=== PATIENT | female | born 1990 | race Caucasian/White ===

== ENCOUNTER → 2019-01-30 10:37 | Outpatient (CLI) | payer MEDICAID, SELFPAY | PROVIDERS: PCP Nurse Practitioner Family; Visit Provider Nurse Practitioner Family | DX: R10.9 Unspecified abdominal pain (principal) ==

== ENCOUNTER → 2019-01-31 09:15 | Outpatient (CLI) | payer MEDICAID, SELFPAY ==
--- NOTE | 2019-01-31 09:16 | US_ITS ---
PROCEDURE: US GALLBLADDER CLINICAL INDICATION: pain Postprandial pain COMPARISON: No exams were available for comparison FINDINGS: Pancreas: Unremarkable/Not well seen Liver: Unremarkable. There is appropriate direction of blood flow within a non dilated portal vein. Right kidney: Unremarkable appearing. No hydronephrosis. Gallbladder: The gallbladder is contracted with multiple stones. No pericholecystic fluid or biliary dilatation is evident. No gallbladder wall thickening. IMPRESSION: Contracted gallbladder with multiple stones Dictated by: Edy Jessica MD 02/01/2019 11:59 Electronically signed by Edy Jessica MD in [place] 02/02/2019 16:08
== END ==
PROVIDERS: PCP Nurse Practitioner Family; Visit Provider Nurse Practitioner Family
DX: R10.9 Unspecified abdominal pain (principal)
CPT/HCPCS: 76705

== ENCOUNTER → 2019-03-07 16:54 | Outpatient (CLI) | payer MEDICAID, SELFPAY ==
[2019-03-07 17:27] LABS: Basophils % 0.3 % (0.1-2.0); Eosinophils # 0.1 K/mm3 (0.0-0.4); Eosinophils % 1.3 % (0.1-12.0); Hemoglobin 13.3 g/dL (12.2-16.2); Lymphocytes # 3.1 K/mm3 (0.7-4.5); Lymphocytes % 37.1 % (10-50); Mean Corpuscular HGB Conc 33.2 g/dL (31.8-35.4); Mean Corpuscular Hemoglobin 30.1 pg (27.0-31.2); Mean Corpuscular Volume 90.6 fl (81-99); Mean Platelet Volume 9.4 fl (7.4-10.4); Monocytes # 0.3 K/mm3 (0.1-1.0); Neutrophils # 4.8 K/mm3 (1.8-7.8); Neutrophils % 57.3 % (37.0-80.0); Platelet Count 209 K/mm3 (142-424); Red Blood Count 4.42 M/mm3 (4.20-5.40); Red Cell Distribution Width 13.3 % (11.5-17.5); White Blood Count 8.5 K/mm3 (4.8-10.8)
[2019-03-07 19:09] LABS: Alanine Aminotransferase 31 U/L (12-78); Albumin Level 4.2 gm/dL (3.4-5.0); Albumin/Globulin Ratio 1.3 (1.1-1.8); Alkaline Phosphatase 69 U/L (46-116); Anion Gap 14.1 mEq/L (5-15); Aspartate Amino Transferase 18 U/L (15-37); Bilirubin,Total 0.4 mg/dL (0.2-1.0); Blood Urea Nitrogen 11 mg/dL (7-18); Carbon Dioxide 27 mmol/L (21.0-32.0); Chloride 104 mmol/L (98-107); Creatinine,Serum 0.67 mg/dL (0.55-1.02); Estimated Glomerular Filt Rate 106 ml/min (>60); GFR (African American) 128 ML/MIN (>60); Globulin 3.2 gm/dl (1.3-3.2); Glucose 69 mg/dL (74-106); Potassium 4.1 mmoL/L (3.5-5.1); Sodium 141 mmol/L (136-145); Total Protein,Serum 7.4 gm/dL (6.4-8.2)
[2019-03-07 19:54] LABS: HCG Qualitative, Serum Negative (Negative)
== END ==
PROVIDERS: Visit Provider Surgery
DX: K82.9 Disease of gallbladder, unspecified (principal)
CPT/HCPCS: 36415; 80053; 84703; 85025

== ENCOUNTER 2020-11-25 01:00 | Emergency (ER) | payer MEDICAID, SELFPAY ==
[2020-11-25 01:13] VITALS: BP 134/71; PULSE 70; RESP 18; TEMP 37.4; O2SAT 99; BMI 29.0
[2020-11-25 01:36] LABS: Microscopic, Urine URINE MICROSCOPIC (MICROSCOPIC)
--- NOTE | 2020-11-25 01:40 | HMH.EDUROGF ---
ED Disposition Clinical Impression: Vaginitis Qualifiers: Chronicity: acute Qualified Code(s): N76.0 - Acute vaginitis Disposition: Home, Self-Care Condition on Discharge: Good Instructions: DI for Bacterial Vaginosis Additional Instructions: use meds and see pcp for follow up or manager gyn and call for culture results Prescriptions: Fluconazole [Diflucan 150mg tab] 150 mg PO ONCE #5 tab Transmission Status: Pending to [facility] Referrals: Wily Rose APRN [Primary Care Provider] - - Critical Care Critical Care Time: No Attestation: On 11/25/20, the high probability of a clinically significant, sudden or life threatening deterioration of the following system(s) required my full and direct attention, intervention and personal management. The time I documented below is in addition to time spent performing reported procedures but includes the following listed in this critical care notation. Medical Decision Making - Medical Records Medical records reviewed: Yes: I reviewed the patient's medical records. - David Inquiry Pt receiving controlled substance: No Vital Signs: 11/25/20 01:13 Temperature 99.3 F Temperature Source Oral Pulse Rate [Right] 70 Respiratory Rate 18 Blood Pressure [Right Arm] 134/71 Blood Pressure Mean [Right Arm] 92 Blood Pressure Source [Right Arm] Automatic Cuff Blood Pressure Position [Right Arm] Sitting 02 Sat by Pulse Oximetry 99 Oxygen Delivery Method Room Air - Lab Data Lab results reviewed: Yes: I reviewed the patient's lab results. Lab Results 11/25/20 01:26: Urine Color Yellow, Urine Appearance Clear, Urine pH 7.0, Ur Specific [place] 1.010, Urine Protein Negative, Urine Glucose (UA) Negative, Urine Ketones Negative, Urine Blood Negative, Urine Nitrate Negative, Urine Bilirubin Negative, Urine Urobilinogen 0.2, Ur Leukocyte Esterase 2+ A, Urine WBC 5-10, Ur Squamous Epith Cells 10-20, Ur Renal Epithelial Cell 5-10 11/25/20 01:36: Urine HCG, Qual Negative Orders (Tests/Meds): ORDERS Category Date Time Status Urine Culture Stat Micro 11/25/20 01:26 Received Female Urogenital HPI - General Chief complaint: Urogenital-Female Stated complaint: Vaginal discharge,irritation and burning Time Seen by Provider: 11/25/20 01:35 Mode of Arrival: Ambulatory Source of Information: Patient, Medical Record Limitations: No Limitations Description of Symptoms (Recalled from ER Triage Doc. by RN): Pt states she has a recent new partner and she has vaginal bleeding yesterday and now has brown to green vaginal discharge and burning with urination. - History of Present Illness HPI Narrative: has vaginal d/c with no odor and is sex active MD Complaint: vaginal discharge Onset (ago): day(s) Radiation: suprapubic Severity: moderate Urinary Symptoms: dysuria Sexual activity: new sexual partner(s) : Unknown Associated symptoms: vaginal discharge - Related Data Home Medications Medication Instructions Recorded Confirmed Nicotine [Nicotine Patch] 1 patch TRANSDERMAL Q24H 03/09/19 08/11/19 Previous Rx's Medication Instructions Recorded fluticasone propionate 50 1 spray INTRANASAL QDAY #9.9 ml 07/07/19 mcg/actuation nasal spray,suspension cephalexin 500 mg capsule 500 mg PO Q12H 10 Days #20 cap 08/11/19 Fluconazole [Diflucan 150mg tab] 150 mg PO ONCE #5 tab 11/25/20 Allergies Allergy/AdvReac Type Severity Reaction Status Date / Time No Known Allergies Allergy Verified 08/11/19 11:11 [facility] History - Hepatitis A Screen Drug use history?: No High risk sexual behaviors?: No History of sexually transmitted infection?: No Currently employed?: No Childcare worker?: No Do you have indoor plumbing?: Yes Do you have electricity?: Yes Attestation statement:: This patient has been screened for Hepatitis A risk factors. I have reviewed the patient's past medical history: Yes Medical History: Reports:: Anxiety, Migraine Denie
[2020-11-25 01:47] LABS: Appearance,Urine CLEAR (Clear); Bilirubin,Urine Negative (Negative); Blood, Urine Negative (Negative); Color,Urine YELLOW (Yellow); Glucose,Urine (UA) Negative (Negative); Ketones,Urine Negative (Negative); Leukocyte Esterase,Urine 2+ (Negative); Nitrate,Urine Negative (Negative); Protein,Urine Negative (Negative); Urobilinogen,Urine 0.2 EU/dl (0.2)
[2020-11-25 01:51] LABS: Urine Pregnancy, HCG Qual. Negative (Negative)
[2020-11-25 02:14] VITALS: BP 138/72; PULSE 74; RESP 18; TEMP 37.4; O2SAT 98
[2020-11-27 01:10] LABS: Neisseria gonorrhoeae, NAA Negative (Negative)
== END 2020-11-25 02:16 | disposition home or self-care (01) ==
PROVIDERS: Emergency Provider Emergency Medicine; PCP Nurse Practitioner Family
DX: N76.0 Acute vaginitis (principal); F41.9 Anxiety disorder, unspecified; F17.210 Nicotine dependence, cigarettes, uncomplicated
CPT/HCPCS: 81001; 81025; 87086; 87210; 87491; 87591; 99282

== ENCOUNTER 2021-11-21 16:59 | Emergency (ER) | payer MEDICAID, SELFPAY ==
[2021-11-21 17:17] VITALS: BP 121/86; PULSE 88; RESP 18; TEMP 36.9; O2SAT 98; BMI 28.1
[2021-11-21 17:21] LABS: UTC Strep Screen (Rapid) Negative (Negative)
--- NOTE | 2021-11-21 17:21 | HMH.EDUTC ---
[facility] [place] Clinical Impression: Pharyngitis Qualifiers: Pharyngitis/tonsillitis etiology: other specified organisms Qualified Code(s): J02.8 - Acute pharyngitis due to other specified organisms Otitis media Qualifiers: Otitis media type: suppurative Chronicity: acute Laterality: bilateral Recurrence: non-recurrent Spontaneous tympanic membrane rupture: without spontaneous rupture Qualified Code(s): H66.003 - Acute suppurative otitis media without spontaneous rupture of ear drum, bilateral Disposition: Home, Self-Care Condition on Discharge: Good Instructions: Middle Ear Infection, DI for Strep Throat Additional Instructions: Drink plenty of fluids. Take tylenol or ibuprofen for pain or fever. Take the medications as directed. Follow up with your regular doctor. GO TO THE ER FOR ANY WORSENING SYMPTOMS Prescriptions: methylPREDNISolone [Medrol] 4 mg PO DIRECTED 6 Days #21 packet Transmission Status: Sent to [facility] Azithromycin [Z-Garry 250mg Tab*] 250 mg PO UD DOSE PK #6 tab Transmission Status: Sent to [facility] Referrals: Aylin Richardson PA [Primary Care Provider] - Forms: Work/School Release Time of Disposition: 17:41 Medical Decision Making - Medical Records Medical records reviewed: No: I reviewed the patient's medical records. - David Inquiry Pt receiving controlled substance: No Vital Signs: 11/21/21 17:17 Temperature 98.4 F Temperature Source Oral Pulse Rate [Left Radial] 88 Respiratory Rate 18 Blood Pressure [Right Arm] 121/86 Blood Pressure Mean [Right Arm] 97 02 Sat by Pulse Oximetry 98 Oxygen Delivery Method Room Air - Lab Data Lab Results 11/21/21 17:02: Strep Scn Rapid Clinic Negative Orders (Tests/Meds): ORDERS Category Date Time Status Strep Screen Confirmation Stat Micro 11/21/21 17:02 Received [facility] [place] - General Stated complaint: sore throat Time Seen by Provider: 11/21/21 17:21 Mode of Arrival: Ambulatory Source of Information: Patient Limitations: No Limitations Description of Symptoms (Recalled from Triage Doc. by RN): pt to [facility] c/o sore throat that started this morning HEENT Symptoms (Recalled from RN notes): Yes Resp Symptoms (Recalled from RN notes): No Skin Symptoms (Recalled from RN notes): No MS Symptoms (Recalled from RN notes): No Functional Status (Recalled from RN notes): na - History of Present Illness Provider Complaint: She c/o sore throat and left ear pain for the past 1 day. - Related Data Home Medications Medication Instructions Recorded Confirmed Nicotine [Nicotine Patch] 1 patch TRANSDERMAL Q24H 03/09/19 08/11/19 Previous Rx's Medication Instructions Recorded fluticasone propionate 50 1 spray INTRANASAL QDAY #9.9 ml 07/07/19 mcg/actuation nasal spray,suspension cephalexin 500 mg capsule 500 mg PO Q12H 10 Days #20 cap 08/11/19 Fluconazole [Diflucan 150mg tab] 150 mg PO ONCE #5 tab 11/25/20 metronidazole 500 mg tablet 500 mg PO TID 10 Days #30 tab 11/26/20 Azithromycin [Z-Garry 250mg Tab*] 250 mg PO UD DOSE PK #6 tab 11/21/21 methylPREDNISolone [Medrol] 4 mg PO DIRECTED 6 Days #21 11/21/21 packet Allergies Allergy/AdvReac Type Severity Reaction Status Date / Time No Known Allergies Allergy Verified 08/11/19 11:11 - Worker's Comp Is this a Worker's Comp case?: No [facility] History - Hepatitis A Screen Attestation statement:: This patient has been screened for Hepatitis A risk factors. I have reviewed the patient's past medical history: Yes Medical History: Reports:: Anxiety, Migraine Denies:: Cancer, Diabetes Mellitus Type 1, Diabetes Mellitus Type 2, Internal Pacemaker, MRSA, Seizures, Transient Ischemic Attacks (TIA) Other Medical History: Denies: Blood Transfusion Reaction Other Surgeries: Yes: No Previous Surgery, Cholecystectomy, Tubal Ligation. No: Pacemaker Amputation: No Fractures: No - Social History Smoking Status: Current pablito
[2021-11-21 17:46] VITALS: BP 119/80; PULSE 87; RESP 18; TEMP 36.9; O2SAT 98
== END 2021-11-21 17:48 | disposition home or self-care (01) ==
PROVIDERS: Emergency Provider Nurse Practitioner Family; PCP Physician Assistant
DX: J02.8 Acute pharyngitis due to other specified organisms (principal); H66.003 Acute suppurative otitis media without spontaneous rupture of ear drum, bilateral; Z72.0 Tobacco use
CPT/HCPCS: 87880; 99212; C9803; G0463; U0003; U0005

== ENCOUNTER 2021-11-25 11:58 | Emergency (ER) | payer MEDICAID, SELFPAY ==
[2021-11-25 11:58] VITALS: BP 127/70; PULSE 69; RESP 15; TEMP 36.9; O2SAT 98; BMI 29.0
--- NOTE | 2021-11-25 12:01 | ECG_ITS ---
APPROVED REPORT Exam: Resting ECG HR:67 bpm ECG Measurements Heart Rate 67 AXES AZ 169 P 51 QRSd 83 QRS 57 QT 371 T 5 QTc 386 Conclusion SINUS RHYTHM NONSPECIFIC T-WAVE ABNORMALITY BORDERLINE ECG UNCONFIRMED REPORT Electronically signed by : Boris Soto MD 11/25/2021 21:21:09
[2021-11-25 12:22] LABS: Coronavirus 19, PCR Not Detected (NotDetected); Influenza A, PCR Not Detected (NotDetected); Influenza B, PCR Not Detected (NotDetected)
--- NOTE | 2021-11-25 12:31 | HMH.EDGENADL ---
ED Disposition Clinical Impression: Bronchitis Disposition: Home, Self-Care Condition on Discharge: Good Prescriptions: predniSONE [Prednisone 20mg Tab] 20 mg PO DAILY #5 tab Transmission Status: Pending to [facility] Azithromycin [Zithromax 500mg Tab Tri-Garry] 500 mg PO DAILY #3 tab Transmission Status: Pending to [facility] Referrals: Provider,Referral, MD [Primary Care Provider] - - Critical Care Critical Care Time: No Attestation: On 11/25/21, the high probability of a clinically significant, sudden or life threatening deterioration of the following system(s) required my full and direct attention, intervention and personal management. The time I documented below is in addition to time spent performing reported procedures but includes the following listed in this critical care notation. Medical Decision Making - Medical Records Medical records reviewed: Yes: I reviewed the patient's medical records. - David Inquiry Pt receiving controlled substance: No Vital Signs: 11/25/21 11:58 Temperature 98.5 F Temperature Source Oral Pulse Rate [Right Radial] 69 Respiratory Rate 15 Blood Pressure [Right Arm] 127/70 Blood Pressure Mean [Right Arm] 89 Blood Pressure Source [Right Arm] Automatic Cuff Blood Pressure Position [Right Arm] Sitting 02 Sat by Pulse Oximetry 98 Oxygen Delivery Method Room Air - Lab Data Lab Results 11/25/21 12:00: Group A Strep Rapid Negative 11/25/21 12:00: SARS-CoV-2 (PCR) Not detected, Influenza A Untype (PCR) Not detected, Influenza Type B (PCR) Not detected Orders (Tests/Meds): ORDERS Category Date Time Status Strep Screen Confirmation Stat Micro 11/25/21 12:00 Received 12-lead EKG Request [ECG Request by /Nevaeh] NEEDED Y 11/25/21 12:15 Stop Req 12-lead EKG Request [ECG Request by /Nevaeh] Stat Y 11/25/21 12:01 Ordered General Adult HPI - General Chief complaint: Upper Respiratory Infection Stated complaint: CP Time Seen by Provider: 11/25/21 12:36 Mode of Arrival: Ambulatory Limitations: No Limitations Description of Symptoms (Recalled from ER Triage Doc. by RN): Pt c/o CP with inspiration, wheezing, SOA, dry cough, sore throat - History of Present Illness HPI narrative: Patient presents with a 1 day history of coughing, sore throat and intermittent wheezing and shortness of air. She states her children had similar symptoms last week, positive for strep. She denies chest pain at this time. Symptoms are described as mild to moderate and without exacerbating or alleviating factors. - Related Data Home Medications Medication Instructions Recorded Confirmed Nicotine [Nicotine Patch] 1 patch TRANSDERMAL Q24H 03/09/19 08/11/19 Previous Rx's Medication Instructions Recorded fluticasone propionate 50 1 spray INTRANASAL QDAY #9.9 ml 07/07/19 mcg/actuation nasal spray,suspension cephalexin 500 mg capsule 500 mg PO Q12H 10 Days #20 cap 08/11/19 Fluconazole [Diflucan 150mg tab] 150 mg PO ONCE #5 tab 11/25/20 metronidazole 500 mg tablet 500 mg PO TID 10 Days #30 tab 11/26/20 Azithromycin [Z-Garry 250mg Tab*] 250 mg PO UD DOSE PK #6 tab 11/21/21 methylPREDNISolone [Medrol] 4 mg PO DIRECTED 6 Days #21 11/21/21 packet Azithromycin [Zithromax 500mg Tab 500 mg PO DAILY #3 tab 11/25/21 Tri-Garry] predniSONE [Prednisone 20mg 20 mg PO DAILY #5 tab 11/25/21 Tab] Allergies Allergy/AdvReac Type Severity Reaction Status Date / Time No Known Allergies Allergy Verified 08/11/19 11:11 [facility] History - Hepatitis A Screen Drug use history?: No Attestation statement:: This patient has been screened for Hepatitis A risk factors. Medical History: Reports:: Anxiety, Migraine Denies:: Cancer, Diabetes Mellitus Type 1, Diabetes Mellitus Type 2, Internal Pacemaker, MRSA, Seizures, Transient Ischemic Attacks (TIA) Other Medical History: Denies: Blood Transfusion Reaction Other Surgeries: Yes: No Previous Surgery,
[2021-11-25 12:37] LABS: Strep Scrn Group A (Rapid) Negative (Negative)
[2021-11-25 13:31] VITALS: BP 132/74; PULSE 63; O2SAT 99
[2021-11-25 14:00] VITALS: BP 118/79; PULSE 66; O2SAT 98
[2021-11-25 14:02] VITALS: BP 129/74; PULSE 67; RESP 16; TEMP 36.9; O2SAT 99
[2021-11-25 14:07] VITALS: BP 118/79; PULSE 63; RESP 16; TEMP 36.9; O2SAT 99
== END 2021-11-25 14:08 | disposition home or self-care (01) ==
PROVIDERS: Emergency Provider Emergency Medicine
DX: J40 Bronchitis, not specified as acute or chronic (principal); Z72.0 Tobacco use; F41.9 Anxiety disorder, unspecified; G43.909 Migraine, unspecified, not intractable, without status migrainosus
CPT/HCPCS: 87430; 93005; 99283; C9803; U0003; U0005

== ENCOUNTER 2021-12-23 16:52 | Emergency (ER) | payer MEDICAID, SELFPAY ==
[2021-12-23 16:53] VITALS: BP 151/81; PULSE 65; RESP 18; TEMP 36.9; O2SAT 97; BMI 29.7
[2021-12-23 17:17] LABS: Apearance,Urine Clear (Clear); Color,Urine Yellow (Yellow); Glucose,Urine (UA) Negative (Negative); PH,Urine 6.5 (5.0-8.5); Protein,Urine Negative (Negative)
[2021-12-23 17:18] LABS: Bilirubin,Urine Negative (Negative); Blood, Urine Trace (Negative); Ketones,Urine Negative (Negative); UTC Leukocyte Esterase,Urine 1+ (Negative); UTC Nitrate,Urine Positive (Negative); Urobilinogen,Urine 0.2 EU/dl (0.2)
--- NOTE | 2021-12-23 17:22 | EXP.UTC ---
Discharge Plan Disposition Patient Disposition: Home, Self-Care Condition: Good Prescriptions Prescriptions: New phenazopyridine [Pyridium] 200 mg tablet 200 mg PO Q8H Qty: 6 0RF sulfamethoxazole-trimethoprim [Bactrim DS] 800-160 mg Tablet 1 tab PO BID Qty: 14 0RF ondansetron 4 mg Tablet,Disintegrating 4 mg PO Q8H PRN (Reason: Nausea) Qty: 20 0RF No Action fluticasone propionate [Flonase Allergy Relief] 50 mcg/actuation spray,suspension 1 spray INTRANASAL QDAY Qty: 9.9 0RF Rx Instructions: administer into each nostril cephalexin [Keflex] 500 mg capsule 500 mg PO Q12H 10 Days Qty: 20 0RF metronidazole [Flagyl] 500 mg tablet 500 mg PO TID 10 Days Qty: 30 0RF Rx Instructions: Do not consume Alcohol while taking this medication. nicotine 1 EACH patch, TD daily, sequential 1 patch transdermal Q24H azithromycin 500 MG tablet 500 mg PO DAILY Qty: 3 0RF prednisone 20 MG tablet 20 mg PO DAILY Qty: 5 0RF fluconazole 150 MG tablet 150 mg PO ONCE Qty: 5 0RF azithromycin 250 MG tablet 250 mg PO UD DOSE PK Qty: 6 0RF Rx Instructions: Take two (2) tablets today, then one (1) tablet days #2 thru #5 methylprednisolone 4 MG tablets,dose pack 4 mg PO DIRECTED 6 Days Qty: 21 0RF Referrals Follow up/Referrals: Aylin Richardson PA [Primary Care Provider] - See instructions Activity Restrictions/Add. Instructions Additional Instructions/Restrictions: Drink plenty of fluids. Take tylenol or ibuprofen for pain or fever. Take the medications as directed. Follow up with your regular doctor. GO TO THE ER FOR ANY WORSENING SYMPTOMS The pyridium will make your urine turn orange, this is an expected side effect. It will stain your clothes if it comes into contact with them. We will culture the urine. That will tell what bacteria is causing your infection and which antibiotics will treat it best. Sometimes the first antibiotic we prescribe turns out to not work against different bacteria. So, make sure you follow up within 3 days if you are not getting better. Clinical Impressions Clinical Impression: UTI (urinary tract infection) Instructions Patient Instructions: Urine Culture, DI for Urinary Tract Infection (UTI), Phenazopyridine Discharge ED Provider: Dwayne Leger [facility] HPI General Stated complaint: POSS UTI Mode of Arrival: Ambulatory Source of Information: Patient Limitations: No Limitations Time Seen by Provider: 12/23/21 17:22 Description of Symptoms (Recalled from Triage Doc. by RN): PT C/O UTI X 4 DAYS AND BILATERAL EAR ACHE HEENT Symptoms (Recalled from RN notes): Yes Resp Symptoms (Recalled from RN notes): No Skin Symptoms (Recalled from RN notes): No MS Symptoms (Recalled from RN notes): No Functional Status (Recalled from RN notes): NA History of Present Illness Provider Complaint: She c/o low back pain, dysuria and urinary frequency for the past 2 days. Related Data Home Medications Medication Instructions Recorded Confirmed nicotine 1 patch transdermal Q24H daily 03/09/19 08/11/19 21mg/24hr-14mg/24hr-7mg/24hr daily transderm patches,sequentl Previous Rx's Medication Instructions Recorded fluticasone propionate 50 1 spray intranasal QDAY #9.9 mL 07/07/19 mcg/actuation nasal spray,suspension (Flonase Allergy Relief) cephalexin 500 mg capsule (Keflex) 500 mg PO Q12H 10 days #20 caps 08/11/19 fluconazole 150 mg tablet 150 mg PO ONCE #5 tabs 11/25/20 metronidazole 500 mg tablet 500 mg PO TID 10 days #30 tabs 11/26/20 (Flagyl) azithromycin 250 mg tablet 250 mg PO UD DOSE PK #6 tabs 11/21/21 methylprednisolone 4 mg tablets in 4 mg PO DIRECTED 6 days #21 11/21/21 a dose pack packets azithromycin 500 mg tablet 500 mg PO DAILY #3 tabs 11/25/21 prednisone 20 mg tablet 20 mg PO DAILY #5 tabs 11/25/21 ondansetron 4 mg disintegrating 4 mg PO Q8H PRN Nausea #20 tabs 12/23/21 tablet phe
[2021-12-23 18:01] VITALS: BP 151/81; PULSE 65; RESP 18; TEMP 36.9; O2SAT 99
== END 2021-12-23 18:03 | disposition home or self-care (01) ==
PROVIDERS: Emergency Provider Nurse Practitioner Family; PCP Physician Assistant
DX: N39.0 Urinary tract infection, site not specified (principal); B96.89 Other specified bacterial agents as the cause of diseases classified elsewhere; Z16.11 Resistance to penicillins; Z16.24 Resistance to multiple antibiotics; Z16.29 Resistance to other single specified antibiotic
CPT/HCPCS: 81003; 87086; 87088; 87186; 99212; G0463

== ENCOUNTER → 2022-01-29 14:36 | Outpatient (CLI) | payer MEDICAID, SELFPAY ==
[2022-01-29 18:57] LABS: HCG Qualitative, Serum Negative (Negative)
[2022-01-31 08:15] LABS: HSV 2 IgG, Type Spec 5.84 index (0.00-0.90)
[2022-01-31 10:12] LABS: Rapid Plasma Reagin Ab Titer Non Reactive (NonRea<1:1)
[2022-02-02 16:12] LABS: Treponema pallidum Ab (FTA-ABS Non Reactive (Non Reactive)
[2022-02-02 17:27] LABS: Neisseria gonorrhoeae, NAA Negative (Negative)
[2022-02-18 13:44] LABS: Hep A Ab, IgM NEGATIVE; Hepatitis B Core Antibody IgM NEGATIVE; Hepatitis B Surface Antigen NEGATIVE; Hepatitis C Antibody <0.1
[2022-03-07 21:57] LABS: HIV Screen 4th Generation wRfx Non Reactive
== END ==
PROVIDERS: PCP Physician Assistant; Visit Provider Physician Assistant
DX: Z11.3 Encounter for screening for infections with a predominantly sexual mode of transmission (principal); A53.0 Latent syphilis, unspecified as early or late
CPT/HCPCS: 80074; 84703; 86592; 86695; 86703; 86780; 86790; 87491; 87591; G0432

== ENCOUNTER 2022-04-26 19:20 | Emergency (ER) | payer MEDICAID, SELFPAY ==
[2022-04-26 19:25] VITALS: BP 126/83; PULSE 79; RESP 18; TEMP 36.8; O2SAT 96; BMI 32.1
--- NOTE | 2022-04-26 19:40 | EXP.UTC ---
Discharge Plan Disposition Patient Disposition: Home, Self-Care Condition: Good Prescriptions Prescriptions: New penicillin V potassium 500 mg tablet 500 mg PO QID 7 Days Qty: 28 0RF ibuprofen [IBU] 800 mg tablet 800 mg PO TIDP PRN (Reason: Moderate Pain) Qty: 20 0RF No Action valacyclovir [Valtrex] 500 mg tablet 500 mg PO DAILY Qty: 90 3RF Referrals Follow up/Referrals: Aylin Richardson PA [Primary Care Provider] - See instructions Activity Restrictions/Add. Instructions Additional Instructions/Restrictions: Do not smoke Do not suck through straw Soft diet may help with pain and discomfort Make sure to call Dentist first thing in the morning to get in for further evaluation and examination for check for dry socket Return if needed Softly gargle warm salt water if your dentist has said that was ok Clinical Impressions Clinical Impression: Dental infection Instructions Patient Instructions: Ibuprofen, Penicillin V Potassium Discharge ED Provider: Ana Ocasio [facility] General Stated complaint: dental pain Mode of Arrival: Ambulatory Source of Information: Patient and Parent(s) Limitations: No Limitations Time Seen by Provider: 04/26/22 19:40 Description of Symptoms (Recalled from Triage Doc. by RN): PATIENT C/O DENTAL PAIN AND BLEEDING AFTER GETTING A TOOTH (TOP, RIGHT) PULLED ON WEDNESDAY HEENT Symptoms (Recalled from RN notes): Yes Resp Symptoms (Recalled from RN notes): No Skin Symptoms (Recalled from RN notes): No MS Symptoms (Recalled from RN notes): No Functional Status (Recalled from RN notes): WNL History of Present Illness Provider Complaint: Patient states that she had two teeth pulled on Wednesday and thinks they may have been infected States that earlier she noticed what looked like infection coming from area that she had teeth removed States that area is looking red and swollen States that she was worried that it was getting infected when she started having more pain in her gums and hurting into her jaw area States that she rinsed the area with salt water and it didnt help much so she came in to get it checked Related Data Previous Rx's Medication Instructions Recorded valacyclovir 500 mg tablet 500 mg PO DAILY #90 tabs 02/03/22 (Valtrex) ibuprofen 800 mg tablet (IBU) 800 mg PO TIDP PRN Moderate Pain 04/26/22 #20 tabs penicillin V potassium 500 mg 500 mg PO QID 7 days #28 tabs 01/22/23 tablet Allergies Allergy/AdvReac Type Severity Reaction Status Date / Time No Known Allergies Allergy Verified 01/29/22 15:04 Worker's Comp Is this a Worker's Comp case?: No [facility] Disclaimer: The information contained in this section may have been updated after the patient was seen, as this information can be updated by other users. Surgical History H/O tubal ligation History of cholecystectomy Social History (Updated 04/26/22 @ 19:39 by Elsa Potts RN) Smoking Status: Current every day smoker tobacco type: cigarettes packs per day: 1 alcohol intake: never substance use type: other current occupational status: disabled Travel in the last 8 weeks: None household members: significant other housing: house current occupational exposures/hazards: No caffeine: Yes ROS Obtained: Yes All systems reviewed & no additional complaints except as documented and Yes Systems reviewed as appropriate & no additional complaints except as documented Constitutional Constitutional: Reports system reviewed and no additional complaints, except as documented and Reports as per HPI ENT Ears, Nose, Mouth, and Throat: Reports system reviewed and no additional complaints, except as documented, Reports as per HPI, Reports dental pain and Reports other (thinks she has infection where she had 2 teeth extracted) Physical Exam General General appearance: alert and in no apparent distress Expanded ENT Exam Mouth exam: Pr
[2022-04-26 19:47] VITALS: BP 126/83; PULSE 79; RESP 18; TEMP 36.8; O2SAT 96
== END 2022-04-26 20:00 | disposition home or self-care (01) ==
PROVIDERS: Emergency Provider Nurse Practitioner; PCP Physician Assistant
DX: K04.7 Periapical abscess without sinus (principal); K08.499 Partial loss of teeth due to other specified cause, unspecified class
CPT/HCPCS: 99212; 99213; G0463

== ENCOUNTER → 2022-05-11 11:25 | Outpatient (CLI) | payer MEDICAID, SELFPAY ==
[2022-05-15 21:25] LABS: Treponema pallidum Antibodies NON REACTIVE
== END ==
PROVIDERS: PCP Physician Assistant; Visit Provider Physician Assistant
DX: Z20.2 Contact with and (suspected) exposure to infections with a predominantly sexual mode of transmission (principal)
CPT/HCPCS: 36415; 86780

== ENCOUNTER 2022-05-12 19:04 | Emergency (ER) | payer MEDICAID, SELFPAY ==
[2022-05-12 19:50] VITALS: BP 123/70; PULSE 65; RESP 20; TEMP 37.2; O2SAT 97; BMI 29.2
--- NOTE | 2022-05-12 20:24 | EXP.UTC ---
Discharge Plan Disposition Patient Disposition: Home, Self-Care Condition: Good Prescriptions Prescriptions: New benzonatate [benzonatate] 100 mg capsule 100 mg PO TIDP PRN (Reason: Cough) Qty: 30 0RF ondansetron 4 mg Tablet,Disintegrating 4 mg PO Q8H PRN (Reason: Nausea) Qty: 20 0RF Referrals Follow up/Referrals: Aylin Richardson PA [Primary Care Provider] - See instructions Activity Restrictions/Add. Instructions Additional Instructions/Restrictions: Drink plenty of fluids. Take tylenol or ibuprofen for pain or fever. Take the medications as directed. Follow up with your regular doctor. GO TO THE ER FOR ANY WORSENING SYMPTOMS Clinical Impressions Clinical Impression: Acute viral syndrome Instructions Patient Instructions: DI for Viral Syndrome Discharge ED Provider: Dwayne Leger [facility] General Stated complaint: cough headache chills shortness of breath Time Seen by Provider: 05/12/22 20:24 History of Present Illness Provider Complaint: She states that since this morning she has felt bad. She states that she has had a head aches, chills, body aches and a tight feeling when she breathes at times. She denies shortness of breath and chest pain. Related Data Previous Rx's Medication Instructions Recorded benzonatate 100 mg capsule 100 mg PO TIDP PRN Cough #30 caps 05/12/22 ondansetron 4 mg disintegrating 4 mg PO Q8H PRN Nausea #20 tabs 05/12/22 tablet Allergies Allergy/AdvReac Type Severity Reaction Status Date / Time No Known Allergies Allergy Verified 05/12/22 20:41 [facility] Disclaimer: The information contained in this section may have been updated after the patient was seen, as this information can be updated by other users. Surgical History H/O tubal ligation History of cholecystectomy Family History Other No significant family history Social History Smoking Status: Current every day smoker tobacco type: cigarettes packs per day: 1 alcohol intake: never substance use type: other current occupational status: disabled Travel in the last 8 weeks: None household members: significant other housing: house current occupational exposures/hazards: No caffeine: Yes ROS Obtained: Yes All systems reviewed & no additional complaints except as documented Constitutional Constitutional: Reports chills and Reports fever(s) Eyes Eyes: Denies eye discharge ENT Ears, Nose, Mouth, and Throat: Reports as per HPI Cardiovascular Cardiovascular: Denies chest pain Respiratory Respiratory: Denies chest congestion and Reports cough Gastrointestinal Gastrointestingal: Reports nausea; Denies abdominal pain, constipation, cramping, diarrhea or vomiting Musculoskeletal Musculoskeletal: Denies arthralgias Integumentary/Breasts Skin/Breast: Denies rash Neurologic Neurologic: Denies paresthesias Physical Exam General General appearance: alert and in no apparent distress Head Head exam: atraumatic, normocephalic and normal inspection Eye Eye exam: Present normal appearance, PERRL and EOMI ENT ENT exam: Present mucous membranes moist and normal external ear exam Expanded ENT Exam TM/Canal exam: Bilateral TM: erythema and bulging Nose exam: Absent sinus tenderness Mouth exam: Present normal external inspection; Absent drooling Teeth exam: Present normal inspection Throat exam: Present tonsillar erythema, tonsillomegaly and tonsillar exudate Neck Neck exam: Present normal inspection, full ROM and trachea midline; Absent tenderness, meningismus or lymphadenopathy Chest Chest inspection: Present normal inspection and symmetric chest wall rise; Absent tenderness Respiratory Respiratory exam: Present normal lung sounds bilaterally; Absent respiratory distress, wheezes or stridor Cardiovascular Cardiovas
[2022-05-12 20:29] LABS: UTC Influenza A Antigen Negative (Negative); UTC Influenza B Antigen Negative (Negative)
[2022-05-12 21:08] VITALS: BP 123/70; PULSE 65; RESP 20; TEMP 37.2; O2SAT 97
== END 2022-05-12 21:07 | disposition home or self-care (01) ==
PROVIDERS: Emergency Provider Nurse Practitioner Family; PCP Physician Assistant
DX: B34.9 Viral infection, unspecified (principal); R05.9 Cough, unspecified; R51.9 Headache, unspecified; R06.02 Shortness of breath
CPT/HCPCS: 87804; 99212; 99213; C9803; G0463; U0003; U0005

== ENCOUNTER 2022-10-31 13:33 | Emergency (ER) | payer MEDICAID, SELFPAY ==
[2022-10-31 13:35] VITALS: BP 118/82; PULSE 60; RESP 18; O2SAT 98; BMI 28.1
[2022-10-31 14:00] VITALS: BP 119/78; PULSE 61; RESP 18; O2SAT 98
--- NOTE | 2022-10-31 14:24 | HMH.EDGENADL ---
Discharge Plan Disposition Patient Disposition: Home, Self-Care Prescriptions Prescriptions: No Action spinosad [Natroba] 0.9 % suspension 120 ml topical Q7D Qty: 120 0RF benzonatate [benzonatate] 100 mg capsule 100 mg PO TIDP PRN (Reason: Cough) Qty: 30 0RF ondansetron 4 mg Tablet,Disintegrating 4 mg PO Q8H PRN (Reason: Nausea) Qty: 20 0RF Referrals Follow up/Referrals: Aylin Richardson PA [Primary Care Provider] - See instructions Activity Restrictions/Add. Instructions Additional Instructions/Restrictions: Your Steri-Strip and Dermabond apparatus should follow-up in 1 week if it does not at that point you can take topical antibiotic ointment which should dissolve the glue which we can take this off. Return with any changes in mental status or any other concerns. Expect some postconcussive symptoms as we discussed including headache nausea some dizziness difficulty concentrating that should take 1 to 2 weeks to improve please follow-up with primary care doctor as needed. Clinical Impressions Clinical Impression: Concussion, Forehead laceration Instructions Patient Instructions: DI for Laceration Repair Discharge ED Provider: Lore Farris General Adult HPI General Chief complaint: Wound/Laceration Stated complaint: [id number] hit head,dizzy weak,head pain Time Seen by Provider: 10/31/22 14:12 Mode of Arrival: Ambulatory Limitations: No Limitations Description of Symptoms (Recalled from ER Triage Doc. by RN): patient fell while moving furniture, hit head either on coffee table or couch. Laceration to left forehead History of Present Illness HPI narrative: Patient is a 32-year-old female accompanied by her after a head injury last night. States that she fell mechanically and hit her head on the side of a table sustaining a laceration. They have been doing some local wound care at home however her stated it was deep and he wanted to get it checked out today. She has had some mild dizziness associated with this. No changes in mental status no persistent nausea and vomiting. She had a normal alert neurologic baseline per herself and her . Related Data Previous Rx's Medication Instructions Recorded benzonatate 100 mg capsule 100 mg PO TIDP PRN Cough #30 caps 05/12/22 ondansetron 4 mg disintegrating 4 mg PO Q8H PRN Nausea #20 tabs 05/12/22 tablet spinosad 0.9 % topical suspension 120 ml topical Q7D lice 2 doses 07/29/22 (Natroba) #120 mL Allergies Allergy/AdvReac Type Severity Reaction Status Date / Time No Known Allergies Allergy Verified 05/12/22 20:41 [facility] Disclaimer: The information contained in this section may have been updated after the patient was seen, as this information can be updated by other users. Surgical History H/O tubal ligation History of cholecystectomy Family History Other No significant family history Social History Smoking Status: Current every day smoker tobacco type: cigarettes packs per day: 1 alcohol intake: never substance use type: other current occupational status: disabled Travel in the last 8 weeks: None household members: significant other housing: house current occupational exposures/hazards: No caffeine: Yes ROS Obtained: Yes All systems reviewed & no additional complaints except as documented Physical Exam General General appearance: alert Head Head exam: other (2 cm horizontally oriented laceration over the left forehead no evidence of depressed skull fracture no lopez sign or raccoon eyes) Respiratory Respiratory exam: Present normal lung sounds bilaterally Cardiovascular Cardiovascular exam: Present regular rate; Absent tachycardia Neurological Exam Neurological exam: Present alert, oriented X3, CN II-XII intact and n
[2022-10-31 14:25] VITALS: BP 119/78; PULSE 60; RESP 17; TEMP 36.6; O2SAT 99
== END 2022-10-31 14:25 | disposition home or self-care (01) ==
PROVIDERS: Emergency Provider Student in an Organized Health Care Education/Training Program; PCP Physician Assistant
DX: S06.0XAA Concussion with loss of consciousness status unknown, initial encounter (principal); S01.81XA Laceration without foreign body of other part of head, initial encounter; R42 Dizziness and giddiness; W01.190A Fall on same level from slipping, tripping and stumbling with subsequent striking against furniture, initial encounter; F17.210 Nicotine dependence, cigarettes, uncomplicated
CPT/HCPCS: 12011; 99283

== ENCOUNTER 2023-08-05 19:54 | Emergency (ER) | payer MEDICAID, SELFPAY ==
[2023-08-05 19:56] VITALS: BP 146/90; PULSE 73; RESP 18; TEMP 36.9; O2SAT 98; BMI 29.0
--- NOTE | 2023-08-05 20:10 | ED_ITS ---
Discharge Plan Disposition Patient Disposition: Home, Self-Care Prescriptions Prescriptions: New All Day Allergy (cetirizine) 10 mg capsule 10 mg PO DAILY Qty: 30 3RF fluticasone propionate 50 mcg/actuation spray,suspension 2 spray intranasal DAILY Qty: 16 2RF Rx Instructions: administer into each nostril amoxicillin 500 mg tablet 1,000 mg PO BID 10 Days Qty: 40 0RF Referrals Follow up/Referrals: Aylin Richardson PA [Primary Care Provider] - See instructions Activity Restrictions/Add. Instructions Additional Instructions/Restrictions: Call your family doctor to establish care for this visit to the emergency department and schedule follow-up within 48 hours to ensure improvement. Daily allergy medication, steroid nasal spray, and be sure to take your amoxicillin twice daily for 10 days to clear up your infection. Clinical Impressions Clinical Impression: Acute left otitis media Discharge ED Provider: Froilan Cormier General Adult HPI General Chief complaint: Ear Stated complaint: ear pain,sore throat,cant taste Time Seen by Provider: 08/05/23 19:58 Mode of Arrival: Ambulatory Source of Information: Patient Limitations: No Limitations Description of Symptoms (Recalled from ER Triage Doc. by RN): 33 F presents from home with a week of cold like symptoms, bilateral ear pain, tinnitus, and decreased hearing. Patient reports she felt a pop earlier today in her left ear which caused the symptoms to worsen to this ear. Patient denies fever, chills, nausea, and vomiting. History of Present Illness HPI narrative: Please note that above description of symptoms, in this electronic medical record under categorization of recalled from ER triage doctor by RN are reflective of an initial nursing assessment, however, is not reflective of my full history and physical exam that was personally taken and clarified. Consequentially, this preceding description of symptoms, which may include the patient's categorized chief complaint in the EMR, do not reflect my personal clinical impression, and the ultimate description of history of present illness and patient stated complaints should be deferred to this section of the note. Unless stated otherwise or congruent with this section of the note, additional signs, symptoms, or incongruence should be interpreted as inaccurate with my clinical impression. Related Data Previous Rx's Medication Instructions Recorded amoxicillin 500 mg tablet 1,000 mg (2 x 500 mg) PO BID 10 08/05/23 days #40 tabs cetirizine 10 mg capsule (All Day 10 mg PO DAILY allergy symptoms 08/05/23 Allergy (cetirizine)) #30 caps fluticasone propionate 50 2 spray intranasal DAILY #16 grams 08/05/23 mcg/actuation nasal spray,suspension Allergies Allergy/AdvReac Type Severity Reaction Status Date / Time No Known Allergies Allergy Verified 05/12/22 20:41 [facility] Disclaimer: The information contained in this section may have been updated after the patient was seen, as this information can be updated by other users. Surgical History H/O tubal ligation History of cholecystectomy Family History Other No significant family history Social History Smoking Status: Current every day smoker tobacco type: cigarettes packs per day: 1 alcohol intake: never substance use type: other current occupational status: disabled Travel in the last 8 weeks: None household members: significant other housing: house current occupational exposures/hazards: No caffeine: Yes ROS Obtained: Yes All systems reviewed & no additional complaints except as documented Physical Exam General General appearance: alert and in no apparent distress Head Head exam: atraumatic and normocephalic Eye Eye exam: Present normal appearance, PERRL and EOMI ENT ENT exam: Present mucous membranes moist Neck Neck exam: Present normal inspection, full ROM and trachea midline Respiratory Respiratory exam: Absent respiratory distress, wheezes, stridor, accessory muscle use or prolonged expiratory phase Cardiovascular Cardiovascular exam: Present normal rhythm Abdominal Exam Abdominal exam: Present soft; Absent distention, tenderness, guarding, rebound or rigidity Extremities Exam Extremities exam: Absent edema Neurological Exam Neurological exam: Present alert, oriented X3, CN II-XII intact and normal gait; Absent motor sensory deficit Skin Skin exam: Present warm and dry; Absent diaphoresis or erythema Medical Decision Making Medical Records Medical records reviewed: Yes I reviewed the patient's medical records. David Inquiry Pt receiving controlled substance: No David was queried for this patient: No Vital Signs: 08/05/23 19:56 08/05/23 20:16 Temperature 98.5 F 98.5 F Temperature Source Oral Oral Pulse Rate 70 Pulse Rate [Left] 73 Respiratory Rate 18 16 Blood Pressure 138/76 Blood Pressure [Right Arm] 146/90 H Blood Pressure Mean [Right Arm] 108 Blood Pressure Source Automatic Cuff Blood Pressure Source [Right Arm] Automatic Cuff Blood Pressure Position Sitting Blood Pressure Position [Right Arm] Sitting 02 Sat by Pulse Oximetry 98 Oxygen Delivery Method Room Air Room Air Orders (Tests/Meds): ED MEDICATIONS Discontinued Medications Generic Name Dose Route Start Last Admin Trade Name Latricia PRN Reason Stop Dose Admin Amoxicillin 1,000 mg 08/05/23 20:06 08/05/23 20:15 Amoxicillin 500mg Capsule PO 08/05/23 20:07 1,000 mg ONCE ONE Administration Loratadine 10 mg 08/05/23 20:07 08/05/23 20:15 Loratadine 10mg Tablet PO 08/05/23 20:08 10 mg ONCE ONE Administration Medical Decision Narrative: 33-year-old female history of eustachian tube dysfunction presenting with bilateral ear pain. She started feeling congested 3 to 4 days prior to visit. Started having pain in her bilateral ears today. Try to yawn/pop her ears, she was able to pop the right ear, but decompression of the left ear did not happen. Is now mild to moderate pain, does not radiate. No drainage from the area. No fevers or chills, nausea or vomiting, or any other concerns. History was obtained via conversation with patient. On arrival, patient hemodynamically stable, alert, oriented x4, appropriate, GCS 15, moving all extremities spontaneously, pupils equal and reactive to light. Full physical exam performed and significant for right TM with serous effusion, left TM with acute otitis media. External auditory canals normal. No mastoid tenderness. No lymphadenopathy. No pharyngeal erythema or edema. Differential includes acute otitis media of the left, acute viral syndrome, seasonal allergies, etc. Patient was given amoxicillin and loratadine for symptomatic management and correction of underlying abnormalities. Because patient very well-appearing, no workup including swabs, labs or imaging deemed necessary at this time. Swab considered, but after shared decision-making, opted out. Because patient at baseline without signs or symptoms of clinical decompensation, deemed appropriate for discharge. Results were relayed to patient who voiced understanding and were agreeable to outpatient management and follow up. I discussed my clinical impression with patient and answered all questions. At this time, the evidence for any other entities in the differential is insufficient to warrant any further testing or ED observation. This was explained as well. Advisory was given that persistent or worsening symptoms require further evaluation. I confirmed the understanding of this discussion. Critical Care Critical Care Time Critical Care Time: No
[2023-08-05] MEDS: AMOXICILLIN 500MG CAPSULE 1000 MG PO (20:15)
[2023-08-05] MEDS: LORATADINE 10MG TABLET 10 MG PO (20:15)
[2023-08-05 20:16] VITALS: BP 138/76; PULSE 70; RESP 16; TEMP 36.9; O2SAT 98
== END 2023-08-05 20:16 | disposition home or self-care (01) ==
PROVIDERS: Emergency Provider Emergency Medicine; PCP Physician Assistant
DX: H66.92 Otitis media, unspecified, left ear (principal)
CPT/HCPCS: 99283

== ENCOUNTER 2023-09-28 18:09 | Emergency (ER) | payer MEDICAID, SELFPAY ==
[2023-09-28 18:15] VITALS: BP 119/60; PULSE 50; RESP 18; TEMP 36.8; O2SAT 100; BMI 27.0
--- NOTE | 2023-09-28 18:26 | ED_ITS ---
Discharge Plan Disposition Patient Disposition: Home, Self-Care Condition: Good Prescriptions Prescriptions: New ondansetron 4 mg Tablet,Disintegrating 4 mg PO Q8H PRN (Reason: Nausea) Qty: 12 0RF nitrofurantoin monohyd/m-cryst [Macrobid] 100 mg Capsule 100 mg PO BID Qty: 10 0RF Rx Instructions: must administer with a meal/food famotidine 40 mg tablet 40 mg PO HS 30 Days Qty: 30 2RF Referrals Follow up/Referrals: Aylin Richardson PA [Primary Care Provider] - See instructions Activity Restrictions/Add. Instructions Additional Instructions/Restrictions: Drink plenty of fluids. Take tylenol or ibuprofen for pain or fever. Take the medications as directed. Follow up with your regular doctor. GO TO THE ER FOR ANY WORSENING SYMPTOMS We will culture the urine. That will tell what bacteria is causing your infection and which antibiotics will treat it best. Sometimes the first antibiotic we prescribe turns out to not work against different bacteria. So, make sure you follow up within 3 days if you are not getting better. Clinical Impressions Clinical Impression: UTI (urinary tract infection), Gastritis Stand Alone Forms Stand Alone Forms: Work/School Release Instructions Patient Instructions: Gastritis, Urine Culture, DI for Urinary Tract Infection (UTI), DI for Gastritis, Ondansetron Discharge ED Provider: Dwayne Leger [facility] General Stated complaint: dysuria, abdominal discomfort Time Seen by Provider: 09/28/23 18:26 History of Present Illness Provider Complaint: She states that she has had urinary frequency, lower abdominal pain, and frequent heart burn for the past 1 week. Related Data Previous Rx's Medication Instructions Recorded famotidine 40 mg tablet 40 mg PO HS 30 days #30 tabs 09/28/23 nitrofurantoin 100 mg PO BID #10 caps 09/28/23 monohydrate/macrocrystals 100 mg capsule (Macrobid) ondansetron 4 mg disintegrating 4 mg PO Q8H PRN Nausea #12 tabs 09/28/23 tablet Allergies Allergy/AdvReac Type Severity Reaction Status Date / Time No Known Allergies Allergy Verified 09/28/23 18:42 [facility] Disclaimer: The information contained in this section may have been updated after the patient was seen, as this information can be updated by other users. Surgical History H/O tubal ligation History of cholecystectomy Family History Other No significant family history Social History Smoking Status: Current every day smoker tobacco type: cigarettes packs per day: 1 alcohol intake: never substance use type: other current occupational status: disabled Travel in the last 8 weeks: None household members: significant other housing: house current occupational exposures/hazards: No caffeine: Yes ROS Obtained: Yes All systems reviewed & no additional complaints except as documented Constitutional Constitutional: Reports system reviewed and no additional complaints, except as documented, Denies chills and Denies fever(s) Eyes Eyes: Denies eye discharge ENT Ears, Nose, Mouth, and Throat: Denies dysphagia, Denies sore throat and Denies throat swelling Cardiovascular Cardiovascular: Denies chest pain and Denies dyspnea Respiratory Respiratory: Denies chest congestion, Denies cough and Denies dyspnea Gastrointestinal Gastrointestingal: Reports as per HPI and nausea; Denies constipation, diarrhea, dysphagia or vomiting Genitourinary Female Genitourinary: Reports as per HPI, Reports dysuria, Reports urinary frequency, Denies urinary incontinence, Reports urinary hesitancy and Reports urinary urgency Musculoskeletal Musculoskeletal: Denies arthralgias and Reports back pain Integumentary/Breasts Skin/Breast: Denies rash Neurologic Neurologic: Denies paresthesias Allergic/Immunologic Allergic/Immunologic: Denies throat swelling Physical Exam General General appearance: alert and in no apparent distress Head Head exam: atraumatic and normocephalic Eye Eye exam: Present normal appearance, PERRL and EOMI ENT ENT exam: Present normal exam, normal oropharynx, mucous membranes moist, TM's normal bilaterally and normal external ear exam Neck Neck exam: Present normal inspection, full ROM and trachea midline; Absent tenderness, meningismus or lymphadenopathy Chest Chest inspection: Present normal inspection and symmetric chest wall rise; Absent tenderness, rash or abscess Respiratory Respiratory exam: Present normal lung sounds bilaterally; Absent respiratory distress, wheezes or stridor Cardiovascular Cardiovascular exam: Present regular rate and normal rhythm; Absent irregular rhythm, systolic murmur, diastolic murmur or JVD Abdominal Exam Abdominal exam: Present soft and normal bowel sounds; Absent distention, ten derness, guarding, rebound, rigidity, psoas sign, obturator sign, heel tap sign, Boswell's sign, Rovsing's sign or tenderness at McBurney's Point Extremities Exam Extremities exam: Present normal inspection and full ROM; Absent tenderness Back Exam Back exam: Present normal inspection and full ROM; Absent tenderness, CVA tenderness (R) or CVA tenderness (L) Neurological Exam Neurological exam: Present alert, oriented X3 and CN II-XII intact Psychiatric Psychiatric exam: Present normal affect and normal mood Skin Skin exam: Present warm, dry, intact and normal color Lymphatic Lymphatic Findings: no adenopathy Medical Decision Making Medical Records Medical records reviewed: No I reviewed the patient's medical records. David Inquiry Pt receiving controlled substance: No Lab Data Lab results reviewed: Yes I reviewed the patient's lab results.
[2023-09-28 18:48] LABS: Apearance,Urine Slightly Cloudy (Clear); Color,Urine Dark Yellow (Yellow); PH,Urine 6.5 (5.0-8.5)
[2023-09-28 18:49] LABS: Bilirubin,Urine Negative (Negative); Blood, Urine Trace (Negative); Glucose,Urine (UA) Negative (Negative); Ketones,Urine Negative (Negative); Protein,Urine Negative (Negative); UTC Leukocyte Esterase,Urine Negative (Negative); UTC Nitrate,Urine Positive (Negative); Urobilinogen,Urine 0.2 EU/dl (0.2)
[2023-09-28 19:06] VITALS: BP 119/60; PULSE 50; RESP 18; TEMP 36.8; O2SAT 100
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
== END 2023-09-28 19:06 | disposition home or self-care (01) ==
PROVIDERS: Emergency Provider Nurse Practitioner Family; PCP Physician Assistant
DX: N39.0 Urinary tract infection, site not specified (principal); B96.29 Other Escherichia coli [E. coli] as the cause of diseases classified elsewhere; K29.70 Gastritis, unspecified, without bleeding; R10.30 Lower abdominal pain, unspecified; K21.9 Gastro-esophageal reflux disease without esophagitis; R30.0 Dysuria; R35.0 Frequency of micturition
CPT/HCPCS: 81003; 87086; 87088; 87186; 99212; 99214; G0463

== ENCOUNTER 2024-05-23 07:48 | Outpatient (CLI) | payer MEDICAID, SELFPAY ==
--- NOTE | 2024-05-23 07:55 | US_ITS ---
FINAL REPORT TECHNIQUE: Sonographic images of the right upper quadrant were obtained. CLINICAL HISTORY: ELEVATED LIVER ENZYMES FINDINGS: PANCREAS: Unremarkable. LIVER: Homogeneous. No focal hepatic lesion. No intrahepatic biliary ductal dilatation. The portal vein shows normal directional flow. GALLBLADDER: Patient is status postcholecystectomy. COMMON DUCT: 3 mm. Normal for age. RIGHT KIDNEY: The right kidney measures 9 cm. There is no hydronephrosis, mass, or stone. FREE FLUID: None. IMPRESSION: Status postcholecystectomy, otherwise unremarkable. Reviewed, Interpreted and Dictated by Cleopatra Quarles MD Transcribed by Yaima Avina Authenticated and [facility]
== END 2024-05-23 23:59 | disposition home or self-care (01) ==
LOC: RAD 07:49
PROVIDERS: PCP Nurse Practitioner Family; Visit Provider Nurse Practitioner Family
DX: R74.8 Abnormal levels of other serum enzymes (principal)
CPT/HCPCS: 76705

== ENCOUNTER 2024-10-01 14:30 | Emergency (ER) | payer MEDICAID, SELFPAY ==
[2024-10-01 14:37] VITALS: BP 162/100; PULSE 79; O2SAT 99
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
[2024-10-01 14:45] VITALS: BP 162/100; PULSE 80; RESP 16; TEMP 36.8; O2SAT 98; BMI 30.7
--- NOTE | 2024-10-01 14:58 | PC.NURSE ---
Pt mother at bedside
--- NOTE | 2024-10-01 15:10 | PC.NURSE ---
[employer] shift commander at bedside speaking with patient.
[2024-10-01] MEDS: ACETAMINOPHEN 500MG TAB 1000 MG PO (15:11)
[2024-10-01 15:42] VITALS: BP 125/80; PULSE 59; O2SAT 99
[2024-10-01 16:00] VITALS: BP 116/80; O2SAT 95
[2024-10-01 16:19] LABS: Urine Pregnancy, HCG Qual. Negative (Negative)
[2024-10-01 16:28] VITALS: BP 116/80; PULSE 78; RESP 18; TEMP 36.6; O2SAT 98
== END 2024-10-01 16:29 | disposition home or self-care (01) ==
PROVIDERS: Emergency Medicine; Emergency Provider Emergency Medicine; PCP Nurse Practitioner Family
DX: S00.11XA Contusion of right eyelid and periocular area, initial encounter (principal); S00.12XA Contusion of left eyelid and periocular area, initial encounter; H11.32 Conjunctival hemorrhage, left eye; S50.11XA Contusion of right forearm, initial encounter; M25.512 Pain in left shoulder; T74.11XA Adult physical abuse, confirmed, initial encounter; Y07.010 Husband, current, perpetrator of maltreatment and neglect
CPT/HCPCS: 70450; 70486; 73030; 73090; 81025; 99285

== ENCOUNTER 2024-11-19 20:55 | Emergency (ER) | payer MEDICAID, SELFPAY ==
[2024-11-19 20:58] VITALS: BP 124/78; PULSE 53; RESP 18; TEMP 36.6; O2SAT 100; BMI 30.9
--- OUTSIDE RECORDS SUMMARY | 2024-11-19 21:08 | XMS_ITS | Patient Health Record ---
Author Organization [facility] Address [address] [place] [address] Care Team Providers Care Plant Etiologist Name Role Phone Marli Nunes Unavailable [phone] RosalindZaida montes Unavailable [phone] Hoda Cortes Unavailable [phone] Allergies No Known Allergies Results Component Value Reference Range Flag Notes TSH Reviewed date:04/20/2024 04:20:08 PM Interpretation: Performing Lab: Notes/Report: TSH 1.20 0.35-4.94 uIU/ml N Result a nalyzed by [employer] User [place] Syphilis with Reflex to RPR Titer and TP-PA Confirmation Reviewed date:04/20/2024 04:20:08 PM Interpretation: Performing Lab: Notes/Report: Syphilis (Titer and TP-PA Reflex) Nonreactive Nonreactive HIV Ag/Ab with Reflex to HIV Types 1 and 2 Antibody Differentiation Reviewed date:04/20/2024 04:20:08 PM Interpretation: Performing Lab: Notes/Report: HIV Ag/Ab (HIV 1 and 2 Antibody Reflex) NON REACTIVE NON REACTIVE N Result analyzed by [employer] User [place] HCV AB with Reflex to Quanti ty and Reflex to Genotyping Reviewed date:04/20/2024 08:36:54 AM Interpretation: Performing Lab: Notes/Report: Result analyzed by [employer] User [place] HCV Qnt Interp N/R N HCV Qnt (IU/mL) N/R N HCV Qnt (log IU/mL) N/R N Hepatitis C Antibody (Genotype Reflex) NON REACTIVE NON REACTIVE N Hepatitis C Virus Genotype by Sequencing N/R N Hepatitis B Total Core Antib chapin Reviewed date:04/21/2024 11:02:11 AM Interpretation: Performing Lab: Notes/Report: Hepatitis B Total Core Antibody 0.1400 < 0.8000 Hepatitis B Surface Antigen Reviewed date:04/21/2024 11:02:11 AM Interpretation: Performing Lab: Notes/Report: Hepatitis B Surface Antigen 0.4100 Nonreactive Hepatitis B Surface Antibody Reviewed date:04/23/2024 12:34:03 PM Interpretation: Performing Lab: Notes/Report: Hepatitis B Surface Antibody 1000.0000 - A Chlamydia and Gonorrhea Pane l Reviewed date:04/15/2024 01:41:18 PM Interpretation: Performing Lab: Notes/Report: Chlamydia trachomatis Not Detected Not Detected Neisseria gonorrhoeae Not Detected Not Detected Comprehensive Metabolic Pane l (CMP) Reviewed date:04/20/2024 04:11:31 PM Interpretation: Performing Lab: Notes/Report: Urea (BUN) 12 7.0000 - 21.0000 mg/dL 12 .0000 Alanine Aminotransferase (ALT/SPGT) 13 0.0000 - 55.0000 U/L 13.0000 Albumin 4.3 3.4000 - 4.8000 g/dL 4.30 00 Albumin/Globulin Ratio 1.5926 1. 5926 Alkaline Phosphate 69 40.0000 - 150.0000 U/L 69.0000 Anion Gap 9 7.0000 - 15.0000 9.0000 Aspartate Aminotransferase (AST/SGOT) 13 5.0000 - 34.0000 U/L 13.0000 Bilirubin, Total 0.5 0.2000 - 1.2000 mg/dL 0.5000 BUN/Creatinine Ratio 14.2857 14.2 857 Calcium 9.6 8.4000 - 10.2000 mg/dL 9. 6000 Chloride 107 98.0000 - 107.00 00 mmol/L 107.0000 CO2 26 22.0000 - 31.000 0 mmol/L 26.0000 Creatinine 0.84 0.6000 - 1.2000 mg/dL 0.8 400 eGFR 94.0877 0.0000 - 59.0000 mL/min/1.73m H 94.0877 Globulin 2.7 1.5000 - 4.5000 g/dL 2.70 00 Glucose 77 70.0000 - 100.00 00 mg/dL 77.0000 Potassium (K) 4 3.5000 - 5.1000 mmol/L 4.0000 Protein, Total 7 6.4000 - 8.3000 g/dL 7.0000 Sodium (Na) 461 205.1930 - 145.0 000 mmol/L 142.0000 Hepatitis (HCV) Quant NAAT w /Reflex to Genotyping ([facility]) Reviewed date:05/26/2024 02:26:40 PM Interpretation: Performing Lab: Notes/Report: HCV Qnt Interp N/R N HCV Qnt (IU/mL) N/R N Result an alyzed by SYLVIA HCV Qnt (log IU/mL) N/R N T. vaginalis Reviewed date:04/15/2024 01:41:11 PM Interpretation: Performing Lab: Notes/Report: Trichomonas vaginalis Not Detected Not Detected Hepatitis C Virus Genotype b y Sequencing Reviewed date:04/20/2024 08:36:49 AM Interpretation: Performing Lab: Notes/Report: Hepatitis C Virus Genotype by Sequencing N/R N CBC with Diff Reviewed date:04/21/2024 11:04:35 AM Interpretation: Performing Lab: Notes/Report: WBC 5.465 3.7000 - 10.1000 x10 5.46 50 NEUT % 40.88 39.3000 - 73.7000 % 40.88 00 PLT 236.8 155.0000 - 366.0 000 x10 236.8000 RBC 4.35 3.6000 - 4.6900 x10 4.350 0 RDW 12.37 11.5000 - 14.5000 % 12.37 00 BASO # 0.0933 0.0000 - 0.8000 x10 0.093 3 BASO % 1.707 0.0000 - 1.7000 % H 1.7070 EO # 0.1829 0.0300 - 0.4400 x10 0.182 9 EO % 3.347 0.6000 - 7.3000 % 3.3470 Hematocrit 38.86 37.7000 - 53.7000 % 38.86 00 Hemoglobin 12.62 10.8000 - 14.2000 g/dL 12 .6200 LYMPH # 2.543 1.0900 - 2.9900 x10 2.543 0 LYMPH % 46.53 18.0000 - 48.3000 % 46.53 00 MCH 29 27.0000 - 31.2000 pg 29.0 000 MCHC 32.48 31.8000 - 35.4000 g/dL 32 .4800 MCV 89.28 81.1000 - 96.0000 fL 89.2 800 MONO # 0.4119 0.2400 - 0.7900 x10 0.411 9 MONO % 7.537 4.4000 - 12.7000 % 7.5370 MPV 7.324 6.9000 - 10.6000 fL 7.324 0 NEUT # 2.234 1.6300 - 6.9600 x10 2.234 0 Reason For Referral No Information Medications Medication SIG (Take, Route, Frequency, Duration) Notes Start Date End Date Status Mirtazapine 7.5 MG Tablet 1 tablet at bedtime Orally at bedtime; Duration: 30 days deliver to [place] 04/28/2024 Active Cetirizine HCl 10 MG Capsule 1 capsule Orally Once a day; Duration: 30 days Active Famotidine 40 MG Tablet 1 tablet Orally Once a day; Duration: 30 days Active hydrOXYzine HCl 25 MG Tablet 1 tablet as needed Orally three times a day; Duration: 30 days As needed 04/13/2024 Active Flonase Allergy Relief 50 MCG/ACT Suspension 1 spray in each nostril Nasally Twice a day Not-Taking Social History Tobacco Use: Social History Observation Description Date Details (start date - stop date) Current Smoker NA - NA Sex Assigned At : Social History Observation Description Sex Assigned At Female Social History Tobacco Use: Social Info Question Answer Notes Tobacco Control (Standard) Tobacco use: Current smoker How often do you smoke cigarettes? Every day How many cigarettes a day do you smoke? 11-20 How soon after you wake up do you smoke your first cigarette? 6-30 minutes Additional Details Category Social Info Options Details Cocaine (powder) First Use 4 months ag o Last Use 2 days ago Frequency/Duration daily Amount 1-2 gms Method Inhalation Marijuana First Use age 17 Last Use 2 days ago Frequency/Duration daily Amount 1-2 blunts day Method Inhalation Pattern of Use Continuous Problems Problem Type SNOMED Code ICD Code Onset Dates Problem Status W/U Status Risk Notes Problem Generalized anxiety disorder (F41.1) Active confirmed Problem Chronic gastric ulcer with haemorrhage (67575401) Chronic or unspecified gastric ulcer with hemorrhage (K25.4) Active confirmed Problem Chronic insomnia (358490392) Chronic insomnia (F51.04) Active confirmed Problem Seasonal allergy (475603872) Seasonal allergies (J30.2) Active confirmed Vital Signs Heart Rate 55 /min 04/27/2024 Temperature 98.9 degrees Fahrenheit 04/27/2024 Respiratory Rate 16 /min 04/27/2024 Blood pressure diastolic 77 mm Hg 04/27/2024 Oximetry 98 % 04/27/2024 Height-cm 157.48 cm 04/27/2024 Weight-kg 81.56 kg 04/27/2024 Height 62 in 04/27/2024 Blood pressure systolic 133 mm Hg 04/27/2024 Weight 179.8 lbs 04/27/2024 BMI 32.88 kg/m2 04/27/2024 Encounters Encounter Location Date Provider Diagnosis [facility] [address] [id number] 04/13/2024 Hoda Sebastian Stimulant use disorder F15.90 ; Chronic insomnia F51.04 ; Chronic or unspecified gastric ulcer with hemorrhage K25.4 ; Generalized anxiety disorder F41.1 ; Seasonal allergies J30.2 and Other lesions of oral mucosa K13.79 [facility] [address] [id number] 04/27/2024 Marli Nunes Chronic insomnia F51.04 [facility] [address] [id number] 04/24/2024 Zaida Boyer [facility] [address] [id number] 04/24/2024 Zaida Boyer [facility] [address] [id number] 04/24/2024 Zaida Boyer Other lesions of ora l mucosa K13.79 [facility] [address] [address] 05/02/2024 Marli Nunes Other lesions of ora l mucosa K13.79 Assessments Encounter Date Diagnosis (ICD Code) Assessment Notes Treatment Notes Treatment Clinical Notes Section Notes 04/13/2024 Stimulant use disorder (ICD-10 - F15.90) Educated on zero tolerance of concomitant use of benzodiazepines. Educated on mandatory participation in counseling, drug testing, and appointments. Educated on overdose prevention. Client is agreeable. Educated on potential side effects, risks, and benefits. Educated on alternatives. Client will continue to be monitored while in residential treatment. All questions answered. Client verbalized understanding. 04/13/2024 Chronic insomnia (ICD-10 - F51.04) 04/24/2024 Other lesions of oral mucosa (ICD-10 - K13.79) 04/27/2024 Chronic insomnia (ICD-10 - F51.04) 05/02/2024 Other lesions of oral mucosa (ICD-10 - K13.79) 04/13/2024 Chronic or unspecified gastric ulcer with hemorrhage (ICD-10 - K25.4) 04/13/2024 Generalized anxiety disorder (ICD-10 - F41.1) 04/13/2024 Seasonal allergies (ICD-10 - J30.2) 04/13/2024 Other lesions of oral mucosa (ICD-10 - K13.79) Plan Of Treatment No Information Insurance Providers Payer Name Payer Address Payer Phone Subscriber Number Group Number Insured Name Patient Relationship to Insured Coverage Start Date Coverage End Date [employer] [address] [address] [place], [place] [id number] Wanda Steele Self - patient is the insured 7 Medical (General) History Medical History History ICD Code Anxiety Seasonal Allergies Stomach Ulcers Panic Attacks Surgical History Surgery Date(Month/Year) Gallbladder removed 2018 tubal 2017 Hospitalization History Reason Date(Month/Year) tubal 2017 Gallbladder removed 2018
--- NOTE | 2024-11-19 21:19 | HMH.EDGENADL ---
Discharge Plan Disposition Patient Disposition: Home, Self-Care Condition: Good Prescriptions Prescriptions: New nitrofurantoin monohyd/m-cryst [Macrobid] 100 mg capsule 100 mg PO BID 7 Days Qty: 14 0RF Rx Instructions: must administer with a meal/food phenazopyridine [Pyridium] 100 mg tablet 100 mg PO Q8H Qty: 9 0RF No Action ondansetron 4 mg Tablet,Disintegrating 4 mg PO Q8H PRN (Reason: Nausea) Qty: 12 0RF nitrofurantoin monohyd/m-cryst [Macrobid] 100 mg Capsule 100 mg PO BID Qty: 10 0RF Rx Instructions: must administer with a meal/food famotidine 40 mg tablet 40 mg PO HS 30 Days Qty: 30 2RF Referrals Follow up/Referrals: Alice Watkins APRN [Primary Care Provider, Medical] - See instructions Clinical Impressions Clinical Impression: Urinary tract infection Instructions Patient Instructions: DI for Acute Abdominal Pain Print Language Print Language: Macanese Discharge ED Provider: Rosario Gaviria General Adult HPI <Dinora Guzman - Last Filed: 11/19/24 22:32> General Chief complaint: Abdominal Pain Stated complaint: stomach pain Time Seen by Provider: 11/19/24 21:19 Mode of Arrival: Ambulatory Source of Information: Patient Description of Symptoms (Recalled from ER Triage Doc. by RN): Pt presents with c/o lower abd pain x 3 days. Pt states she has had slight nausea and diarrhea. Pt states she has a hx of frequent UTIs. Pt states urine has an odor to it, and is darker in color. History of Present Illness HPI narrative: 34-year-old female presents the emergency department complaints of diffuse abdominal pain for the past several days. She denies fever. Reports she did have an episode of diarrhea approximately 4 days ago. Has had mild nausea but no vomiting. She also reports that her urine has been dark in color with a foul odor. Related Data Previous Rx's ?Medication ?Instructions ?Recorded famotidine 40 mg tablet 40 mg PO HS 30 days #30 tabs 09/28/23 nitrofurantoin 100 mg PO BID #10 caps 09/28/23 monohydrate/macrocrystals 100 mg capsule (Macrobid) ondansetron 4 mg disintegrating 4 mg PO Q8H PRN Nausea #12 tabs 09/28/23 tablet nitrofurantoin 100 mg PO BID 7 days #14 caps 11/19/24 monohydrate/macrocrystals 100 mg capsule (Macrobid) phenazopyridine 100 mg tablet 100 mg PO Q8H #9 tabs 11/19/24 (Pyridium) Allergies Allergy/AdvReac Type Severity Reaction Status Date / Time No Known Allergies Allergy Verified 09/28/23 18:42 PFSH <Dinora Guzman - Last Filed: 11/19/24 22:32> PFS Disclaimer: The information contained in this section may have been updated after the patient was seen, as this information can be updated by other users. Surgical History H/O tubal ligation History of cholecystectomy Family History Other No significant family history Social History Smoking Status: Current every day smoker tobacco type: cigarettes packs per day: 1 alcohol intake: never substance use type: other current occupational status: disabled Travel in the last 8 weeks?: None household members: significant other housing: house current occupational exposures/hazards: No caffeine: Yes Have you lived/traveled outside [place] in past 30 days?: No Contact w/someone who lives/traveled outside [place] past 30 days?: No Exposure to someone with infectious disease in past 14 days?: No Do you have a fever (greater than 100.4 F or 38 C)?: No Have you tested positive for COVID-19?: No Exposed to someone with COVID-19 in past 14 days?: No Do you have a sore throat?: No Do you have a cough?: No Do you have any weakness?: No Do you have any diarrhea?: No Are you experiencing any unusual bleeding?: No Do you have any muscle aches/pain?: No Do you have any abdominal pain?: No Are you experiencing loss of taste or smell?: No Other Medical History Have you received the Flu Vaccine for this season: No Have you received the Pneumonia Vaccine: No <Dinora Guzman - Last Filed: 11/19/24 22:32> ROS Obtained: Yes All systems reviewed & no additional complaints except as documented Physical Exam <Dinora Guzman - Last Filed: 11/19/24 22:32> Narrative Physical exam: Patient with mild diffuse abdominal tenderness on palpation. She has normal active bowel sounds in all quadrants. No CVA tenderness noted on palpation. Rest of exam is unremarkable General General appearance: alert Respiratory Respiratory exam: Present normal lung sounds bilaterally Cardiovascular Cardiovascular exam: Present regular rate Neurological Exam Neurological exam: Present alert Medical Decision Making <Dinora Guzman - Last Filed: 11/19/24 22:32> Medical Records Screening: Per USPSTF and CDC recommendations, given the prevalence of disease in our region, it is our hospital?s policy to screen for HIV and viral Hepatitis for all patients aged 18 and over and those with ongoing risk factors. David Inquiry Pt receiving controlled substance: No Vital Signs: 11/19/24 20:58 11/19/24 21:27 11/19/24 21:30 Temperature 97.9 F Temperature Source Oral Pulse Rate 43 L 45 L Pulse Rate [Right] 53 L Respiratory Rate 18 Blood Pressure Blood Pressure [Right Arm] 124/78 Blood Pressure Mean Blood Pressure Mean [Right Arm] 93 Blood Pressure Source [Right Arm] Automatic Cuff Blood Pressure Position Blood Pressure Position [Right Arm] Sitting 02 Sat by Pulse Oximetry 100 100 98 Oxygen Delivery Method Room Air 11/19/24 21:30 11/19/24 21:45 11/19/24 21:50 Temperature Temperature Source Pulse Rate 44 L Pulse Rate [Right] Respiratory Rate Blood Pressure 133/79 136/77 Blood Pressure [Right Arm] Blood Pressure Mean 108 96 Blood Pressure Mean [Right Arm] Blood Pressure Source [Right Arm] Blood Pressure Position Blood Pressure Position [Right Arm] 02 Sat by Pulse Oximetry 95 Oxygen Delivery Method 11/19/24 21:50 11/19/24 22:40 Temperature 98 F Temperature Source Pulse Rate 45 L 50 L Pulse Rate [Right] Respiratory Rate 16 Blood Pressure 124/64 Blood Pressure [Right Arm] Blood Pressure Mean Blood Pressure Mean [Right Arm] Blood Pressure Source [Right Arm] Blood Pressure Position Sitting Blood Pressure Position [Right Arm] 02 Sat by Pulse Oximetry 100 Oxygen Delivery Method Room Air Lab Data Lab Results 11/19/24 21:04: Urine Color Yellow, Urine Appearance Sl cloudy, Urine pH 7.0, Ur Specific Brielle 1.010, Urine Protein Negative, Urine Glucose (UA) Negative, Urine Ketones Negative, Urine Blood Trace-i, Urine Nitrate Positive A, Urine Bilirubin Negative, Urine Urobilinogen 1.0, Ur Leukocyte Esterase 1+ A, Urine RBC Occasional, Urine WBC 5-10, Ur Squamous Epith Cells 10-20, Urine Bacteria 4+ 11/19/24 21:13: WBC 9.6, RBC 4.81, Hgb 14.3, Hct 42.2, MCV 87.7, MCH 29.7, MCHC 33.9, RDW 13.2, Plt Count 230, MPV 11.6 H, Neut % (Auto) 53.3, Lymph % (Auto) 38.4, Morton % (Auto) 6.8, Eos % (Auto) 0.8, Baso % (Auto) 0.5, Neut # (Auto) 5.1, Lymph # (Auto) 3.7, Morton # (Auto) 0.7, Eos # (Auto) 0.1, Baso # (Auto) 0.1, Sodium 137, Potassium 3.6, Chloride 103, Carbon Dioxide 26, Anion Gap 11.6, BUN 10, Creatinine 0.80, Estimated Creat Clear 138, Estimated GFR 83, Est GFR ( Amer) 100, Glucose 92, Calcium 9.7, Total Bilirubin 1.8 H, AST 22, ALT 13, Alkaline Phosphatase 56, Total Protein 8.5 H, Albumin 4.9, Globulin 3.6 H, Albumin/Globulin Ratio 1.4, Lipase 104, Serum HCG, Qual Negative 11/19/24 21:13 11/19/24 21:13 Orders (Tests/Meds): ED MEDICATIONS Discontinued Medications Generic Name Dose Route Start Last Admin Trade Name Latricia PRN Reason Stop Dose Admin Sodium Chloride 1,000 mls @ 999 mls/hr 11/19/24 21:27 11/19/24 21:39 Sod Chlor 0.9% 1000ml Bag IV 11/19/24 22:27 999 mls/hr .Q1H1M ONE Administration Iopamidol 75 ml 11/19/24 21:44 11/19/24 21:48 Iopamidol-370 (76%);100ml Bottle IV 11/19/24 21:45 75 ml ONCE ONE Administration Ketorolac Tromethamine 15 mg 11/19/24 21:27 11/19/24 21:39 Ketorolac 30mg/Ml Vial IV 11/19/24 21:28 15 mg ONCE ONE Administration Ondansetron HCl 4 mg 11/19/24 21:27 11/19/24 21:39 Ondansetron 4mg/2ml Vial IV 11/19/24 21:28 4 mg ONCE ONE Administration Sodium Chloride 10 ml 11/19/24 21:44 11/19/24 21:48 Sodium Chloride 0.9% 10ml Syr (Rad Only) IV 11/19/24 21:45 10 ml ONCE ONE Administration ORDERS Category Date Time Status CT abdomen w con Stat Cat Scan 11/19/24 21:27 Completed Complete Blood Count Auto Diff Stat Lab 11/19/24 21:13 Completed Comprehensive Metabolic Panel Stat Lab 11/19/24 21:13 Completed HCG Qualitative, Serum Stat Lab 11/19/24 21:13 Completed Lipase Stat Lab 11/19/24 21:13 Completed Urinalysis and Microscopic Stat Lab 11/19/24 21:04 Completed Urine Culture Stat Micro 11/19/24 21:04 Received Medical Decision Narrative: 34-year-old male presents to the emergency department with complaints of abdominal pain with mild nausea, no vomiting, no fever for the past several days reports she did have an episode of diarrhea approximately 4 days ago but is not had any since then. He also reports that her urine has been dark in color with a foul smell. Her abdomen is diffusely tender in all quadrants with normal active bowel sounds. No CVA tenderness present. The rest of her exam is unremarkable. Will order urinalysis to rule out urinary tract infection, as well as laboratory studies and CT of abdomen pelvis with IV contrast. I will also order patient a normal saline bolus for hydration as well as Zofran for nausea and Toradol for pain control. Urinalysis positive for nitrates as well as 4+ bacteria and leukocyte esterase. Laboratory studies were nonactionable. CT of abdomen pelvis was also unremarkable for any acute findings. Patient was given normal saline bolus for hydration as well as Toradol for pain and Zofran for nausea. Upon reevaluation she is resting more comfortably in bed. No signs of remained stable during her ER stay. Vies patient that we will treat for urinary tract infection with Macrobid. Will also give a prescription for Pyridium to help with any urinary discomfort. Urged her to increase her fluid intake for the next several days. I also recommended that she follow-up with her primary care provider for further evaluation of her recurrent urinary tract infections. Strict return to return to the emergency department any new or worsening symptoms. She was agreeable to the plan of care. <Rosario Gaviria MD - Last Filed: 11/19/24 23:46> Vital Signs: 11/19/24 20:58 11/19/24 21:27 11/19/24 21:30 Temperature 97.9 F Temperature Source Oral Pulse Rate 43 L 45 L Pulse Rate [Right] 53 L Respiratory Rate 18 Blood Pressure Blood Pressure [Right Arm] 124/78 Blood Pressure Mean Blood Pressure Mean [Right Arm] 93 Blood Pressure Source [Right Arm] Automatic Cuff Blood Pressure Position Blood Pressure Position [Right Arm] Sitting 02 Sat by Pulse Oximetry 100 100 98 Oxygen Delivery Method Room Air 11/19/24 21:30 11/19/24 21:45 11/19/24 21:50 Temperature Temperature Source Pulse Rate 44 L Pulse Rate [Right] Respiratory Rate Blood Pressure 133/79 136/77 Blood Pressure [Right Arm] Blood Pressure Mean 108 96 Blood Pressure Mean [Right Arm] Blood Pressure Source [Right Arm] Blood Pressure Position Blood Pressure Position [Right Arm] 02 Sat by Pulse Oximetry 95 Oxygen Delivery Method 11/19/24 21:50 11/19/24 22:40 Temperature 98 F Temperature Source Pulse Rate 45 L 50 L Pulse Rate [Right] Respiratory Rate 16 Blood Pressure 124/64 Blood Pressure [Right Arm] Blood Pressure Mean Blood Pressure Mean [Right Arm] Blood Pressure Source [Right Arm] Blood Pressure Position Sitting Blood Pressure Position [Right Arm] 02 Sat by Pulse Oximetry 100 Oxygen Delivery Method Room Air Lab Data Lab Results 11/19/24 21:04: Urine Color Yellow, Urine Appearance Sl cloudy, Urine pH 7.0, Ur Specific Bri[place] 1.010, Urine Protein Negative, Urine Glucose (UA) Negative, Urine Ketones Negative, Urine Blood Trace-i, Urine Nitrate Positive A, Urine Bilirubin Negative, Urine Urobilinogen 1.0, Ur Leukocyte Esterase 1+ A, Urine RBC Occasional, Urine WBC 5-10, Ur Squamous Epith Cells 10-20, Urine Bacteria 4+ 11/19/24 21:13: WBC 9.6, RBC 4.81, Hgb 14.3, Hct 42.2, MCV 87.7, MCH 29.7, MCHC 33.9, RDW 13.2, Plt Count 230, MPV 11.6 H, Neut % (Auto) 53.3, Lymph % (Auto) 38.4, Morton % (Auto) 6.8, Eos % (Auto) 0.8, Baso % (Auto) 0.5, Neut # (Auto) 5.1, Lymph # (Auto) 3.7, Morton # (Auto) 0.7, Eos # (Auto) 0.1, Baso # (Auto) 0.1, Sodium 137, Potassium 3.6, Chloride 103, Carbon Dioxide 26, Anion Gap 11.6, BUN 10, Creatinine 0.80, Estimated Creat Clear 138, Estimated GFR 83, Est GFR ( Amer) 100, Glucose 92, Calcium 9.7, Total Bilirubin 1.8 H, AST 22, ALT 13, Alkaline Phosphatase 56, Total Protein 8.5 H, Albumin 4.9, Globulin 3.6 H, Albumin/Globulin Ratio 1.4, Lipase 104, Serum HCG, Qual Negative Orders (Tests/Meds): ED MEDICATIONS Discontinued Medications Generic Name Dose Route Start Last Admin Trade Name Wilyq PRN Reason Stop Dose Admin Sodium Chloride 1,000 mls @ 999 mls/hr 11/19/24 21:27 11/19/24 21:39 Sod Chlor 0.9% 1000ml Bag IV 11/19/24 22:27 999 mls/hr .Q1H1M ONE Administration Iopamidol 75 ml 11/19/24 21:44 11/19/24 21:48 Iopamidol-370 (76%);100ml Bottle IV 11/19/24 21:45 75 ml ONCE ONE Administration Ketorolac Tromethamine 15 mg 11/19/24 21:27 11/19/24 21:39 Ketorolac 30mg/Ml Vial IV 11/19/24 21:28 15 mg ONCE ONE Administration Ondansetron HCl 4 mg 11/19/24 21:27 11/19/24 21:39 Ondansetron 4mg/2ml Vial IV 11/19/24 21:28 4 mg ONCE ONE Administration Sodium Chloride 10 ml 11/19/24 21:44 11/19/24 21:48 Sodium Chloride 0.9% 10ml Syr (Rad Only) IV 11/19/24 21:45 10 ml ONCE ONE Administration ORDERS Category Date Time Status CT abdomen w con Stat Cat Scan 11/19/24 21:27 Completed Complete Blood Count Auto Diff Stat Lab 11/19/24 21:13 Completed Comprehensive Metabolic Panel Stat Lab 11/19/24 21:13 Completed HCG Qualitative, Serum Stat Lab 11/19/24 21:13 Completed Lipase Stat Lab 11/19/24 21:13 Completed Urinalysis and Microscopic Stat Lab 11/19/24 21:04 Completed Urine Culture Stat Micro 11/19/24 21:04 Received Medical Decision Narrative: 34-year-old male presents to the emergency department with complaints of abdominal pain with mild nausea, no vomiting, no fever for the past several days reports she did have an episode of diarrhea approximately 4 days ago but is not had any since then. He also reports that her urine has been dark in color with a foul smell. Her abdomen is diffusely tender in all quadrants with normal active bowel sounds. No CVA tenderness present. The rest of her exam is unremarkable. Will order urinalysis to rule out urinary tract infection, as well as laboratory studies and CT of abdomen pelvis with IV contrast. I will also order patient a normal saline bolus for hydration as well as Zofran for nausea and Toradol for pain control. Urinalysis positive for nitrates as well as 4+ bacteria and leukocyte esterase. Laboratory studies were nonactionable. CT of abdomen pelvis was also unremarkable for any acute findings. Patient was given normal saline bolus for hydration as well as Toradol for pain and Zofran for nausea. Upon reevaluation she is resting more comfortably in bed. No signs of remained stable during her ER stay. Vies patient that we will treat for urinary tract infection with Macrobid. Will also give a prescription for Pyridium to help with any urinary discomfort. Urged her to increase her fluid intake for the next several days. I also recommended that she follow-up with her primary care provider for further evaluation of her recurrent urinary tract infections. Strict return to return to the emergency department any new or worsening symptoms. She was agreeable to the plan of care. I was consulted by the ELIANA, and we discussed the complexity of problems being addressed. I approved the treatment and management plan for this patient's care in the emergency department, thus performing a substantial portion of the medical decision making. Rosario Gaviria MD Critical Care <Dinora Guzman - Last Filed: 11/19/24 22:32> Critical Care Time Critical Care Time: No
[2024-11-19 21:27] VITALS: PULSE 43; O2SAT 100
[2024-11-19 21:27] LABS: Hematocrit 42.2 % (37.0-47.0); Hemoglobin 14.3 g/dL (12.2-16.2); Immature Granulocytes % 0.2 %; Mean Corpuscular HGB Conc 33.9 g/dL (31.8-35.4); Mean Corpuscular Hemoglobin 29.7 pg (27.0-31.2); Mean Corpuscular Volume 87.7 fl (81-99); Nucleated Red Blood Cells % 0 %; Platelet Count 230 K/mm3 (142-424); Red Blood Count 4.81 M/mm3 (4.20-5.40); Red Cell Distribution Width-SD 42.7 fL; White Blood Count 9.6 K/mm3 (4.8-10.8)
--- NOTE | 2024-11-19 21:27 | CT_ITS ---
PROCEDURE INFORMATION: Exam: CT Abdomen And Pelvis With Contrast Exam date and time: 11/19/2024 9:38 PM Age: 34 years old Clinical indication: Abdominal pain; Additional info: Diffuse abdominal pain TECHNIQUE: Imaging protocol: Computed tomography of the abdomen and pelvis with contrast. Radiation optimization: All CT scans at this facility use at least one of these dose optimization techniques: automated exposure control; mA and/or kV adjustment per patient size (includes targeted exams where dose is matched to clinical indication); or iterative reconstruction. Contrast material: ISOVUE; Contrast volume: 75 ml; Contrast route: IV; COMPARISON: US LIVER 05/23/2024 8:02 AM FINDINGS: Lungs: Calcified pulmonary granulomas. Liver: No suspicious mass. Gallbladder and biliary ducts: Cholecystectomy Pancreas: No ductal dilation. No peripancreatic inflammatory changes. Spleen: Calcified splenic granuloma Adrenal glands: No mass. Kidneys and ureters: Renal scarring predominantly on the right Stomach and bowel: Non-obstructive bowel gas pattern. No significant wall thickening. Evaluation of gastrointestinal tract is limited due to lack of oral contrast. Appendix: Unremarkable appendix. Intraperitoneal space: No evidence of pneumoperitoneum. Vasculature: No abdominal aortic aneurysm. Lymph nodes: No lymphadenopathy by size criteria. Urinary bladder: Fluid in the urinary bladder. Reproductive: The uterus is present. Bones/joints: No suspicious osseous lesion. No acute fracture. Soft tissues: Smallfat containing umbilical hernia. IMPRESSION: Unremarkable appendix. Nonobstructive bowel gas pattern.
[2024-11-19 21:29] LABS: Microscopic, Urine URINE MICROSCOPIC (MICROSCOPIC)
[2024-11-19 21:30] VITALS: BP 133/79; PULSE 45; O2SAT 98
[2024-11-19 21:30] LABS: Bilirubin,Urine Negative (Negative); Color,Urine YELLOW (Yellow); Glucose,Urine (UA) Negative (Negative); Ketones,Urine Negative (Negative); Leukocyte Esterase,Urine 1+ (Negative); PH,Urine 7.0 (5.0-8.5); Protein,Urine Negative (Negative); Specific Gravity, Urine 1.010 (1.005-1.030); Urobilinogen,Urine 1.0 EU/dl (0.2)
[2024-11-19 21:34] LABS: Albumin Level 4.9 g/dl (3.5-5.0); Chloride 103 mmol/L (98-107); Potassium 3.6 mmoL/L (3.5-5.1); Sodium 137 mmol/L (136-145)
[2024-11-19 21:37] LABS: Alanine Aminotransferase 13 U/L (12-78); Albumin/Globulin Ratio 1.4 (1.1-1.8); Alkaline Phosphatase 56 U/L (38-126); Anion Gap 11.6 mEq/L (5-15); Aspartate Amino Transferase 22 U/L (14-36); Bilirubin,Total 1.8 mg/dl (0.2-1.3); Blood Urea Nitrogen 10 mg/dl (7-17); Calcium 9.7 mg/dl (8.4-10.2); Carbon Dioxide 26 mmol/L (22.0-30.0); Creatinine Clearance Estimated 138 mL/min (50-200); Creatinine,Serum 0.80 mg/dl (0.52-1.04); Estimated Glomerular Filt Rate 83 ml/min (>60); GFR (African American) 100 ML/MIN (>60); Globulin 3.6 g/dL (1.3-3.2); Glucose 92 mg/dl (74-100); Total Protein,Serum 8.5 g/dl (6.3-8.2)
[2024-11-19] MEDS: KETOROLAC 30MG/ML VIAL 15 MG IV (21:39)
[2024-11-19] MEDS: ONDANSETRON 4MG/2ML VIAL 4 MG IV (21:39)
[2024-11-19] MEDS: 0.9 % SODIUM CHLORIDE 1000ML 1,000 ML 999 ML IV (21:39)
[2024-11-19 21:42] LABS: Bacteria,Urine 4+ /lpf
[2024-11-19 21:44] LABS: RBC,Urine Occasional #/hpf (0-3)
[2024-11-19 21:44] LABS: HCG Qualitative, Serum Negative (Negative)
[2024-11-19 21:45] VITALS: PULSE 44; O2SAT 95
[2024-11-19] MEDS: IOPAMIDOL-370 (76%);100ML BOTTLE 75 ML IV (21:48)
[2024-11-19] MEDS: SODIUM CHLORIDE 0.9% 10ML SYR (RAD ONLY) 10 ML IV (21:48)
[2024-11-19 21:50] VITALS: BP 136/77; PULSE 45; O2SAT 100
[2024-11-19 21:53] LABS: Lipase 104 U/L (23-300)
[2024-11-19 22:40] VITALS: BP 124/64; PULSE 50; RESP 16; TEMP 36.6; O2SAT 98
--- NOTE | 2024-11-21 05:57 | PC.NURSE ---
NOTIFIED OF URINE CULTURE RESULTS NO NEW ORDERS AT THIS TIME
--- NOTE | 2024-11-22 02:05 | PC.NURSE ---
urine results reviewed by MD Lucas no changes to prescriptions at this time.
== END 2024-11-19 22:41 | disposition home or self-care (01) ==
PROVIDERS: Nurse Practitioner Family; Emergency Provider Student in an Organized Health Care Education/Training Program; PCP Nurse Practitioner Family
DX: R10.84 Generalized abdominal pain (principal); N39.0 Urinary tract infection, site not specified; R19.7 Diarrhea, unspecified; R11.0 Nausea; F17.210 Nicotine dependence, cigarettes, uncomplicated
CPT/HCPCS: 74160; 80053; 81001; 83690; 84703; 85025; 87086; 87088; 87186; 96361; 96374; 96375; 99284; 99285; J1885; J2405; J7030; Q9967

== ENCOUNTER 2025-01-26 08:22 | Emergency (ER) | payer MEDICAID, SELFPAY ==
[2025-01-26 08:23] VITALS: BP 133/86; PULSE 54; RESP 16; TEMP 36.6; O2SAT 100; BMI 29.7
[2025-01-26 08:26] VITALS: BP 133/86; PULSE 50; O2SAT 99
[2025-01-26 08:30] VITALS: BP 137/83; PULSE 45; O2SAT 100
[2025-01-26 08:42] LABS: Coronavirus 19, PCR Not Detected (NotDetected); Influenza A, PCR Not Detected (NotDetected); Influenza B, PCR Not Detected (NotDetected)
--- NOTE | 2025-01-26 08:53 | XR_ITS ---
FINAL REPORT CLINICAL HISTORY: cough, has recently been sick. denies chest pain or sob FINDINGS: No acute pulmonary density is evident. There is no evidence of effusion or other pleural disease. The mediastinum has a normal appearance. The cardiac silhouette is unremarkable. IMPRESSION: Unremarkable chest exam. Reviewed, Interpreted and Dictated by Marisela Aviles MD Transcribed by Yaima Avina Authenticated and [facility]
[2025-01-26 09:00] VITALS: BP 116/77; PULSE 48; RESP 16; O2SAT 97
[2025-01-26] MEDS: BENZONATATE 100MG CAPSULE 100 MG PO (09:04)
[2025-01-26] MEDS: ACETAMINOPHEN 500MG TAB 1000 MG PO (09:04)
--- NOTE | 2025-01-26 09:04 | HMH.EDGENADL ---
Discharge Plan Disposition Patient Disposition: Home, Self-Care Prescriptions Prescriptions: New albuterol sulfate [Ventolin HFA] 90 mcg/actuation HFA aerosol inhaler 2 inh inhalation Q6H PRN (Reason: cough) Qty: 8.5 0RF prednisone 50 mg tablet 50 mg PO DAILY 5 Days Qty: 5 0RF Rx Instructions: Please begin 1 day after ED visit vilgzkepsqbkorw-scvojembi-VZ 2-30-10 mg/5 mL syrup 5 ml PO Q6H PRN (Reason: cold symptoms) 7 Days Qty: 118 0RF No Action nitrofurantoin monohyd/m-cryst [Macrobid] 100 mg capsule 100 mg PO BID 7 Days Qty: 14 0RF Rx Instructions: must administer with a meal/food phenazopyridine [Pyridium] 100 mg tablet 100 mg PO Q8H Qty: 9 0RF ondansetron 4 mg Tablet,Disintegrating 4 mg PO Q8H PRN (Reason: Nausea) Qty: 12 0RF nitrofurantoin monohyd/m-cryst [Macrobid] 100 mg Capsule 100 mg PO BID Qty: 10 0RF Rx Instructions: must administer with a meal/food famotidine 40 mg tablet 40 mg PO HS 30 Days Qty: 30 2RF Referrals Follow up/Referrals: Alice Watkins APRN [Primary Care Provider, Medical] - See instructions Activity Restrictions/Add. Instructions Additional Instructions/Restrictions: There is no evidence of an acute cardiopulmonary or infectious emergency today your symptoms are consistent with a viral upper respiratory infection. Supportive care has been prescribed. As discussed I strongly recommend that you stop smoking as this will dramatically improve your chances of long-term health. Clinical Impressions Clinical Impression: URI (upper respiratory infection), Encounter for smoking cessation counseling Instructions Patient Instructions: Cough Print Language Print Language: Irish Discharge ED Provider: Lore Farris General Adult HPI General Chief complaint: Cough Stated complaint: congestion, cough, body aches Time Seen by Provider: 01/26/25 08:44 Mode of Arrival: Ambulatory Source of Information: Patient and Parent(s) Description of Symptoms (Recalled from ER Triage Doc. by RN): pt presents to the ED with cough, runny nose, left ear ache, and congestion that started 2 dyas ago. Pts mom reports that she has recently been sick. Denies chest pain and shortness of breath. History of Present Illness HPI narrative: Patient is a 34-year-old with a history of 17 years of smoking presents today with 2 days of cough bilateral ear discomfort congestion body aches. Has positive sick contact at home with her mother. Related Data Previous Rx's ?Medication ?Instructions ?Recorded famotidine 40 mg tablet 40 mg PO HS 30 days #30 tabs 09/28/23 nitrofurantoin 100 mg PO BID #10 caps 09/28/23 monohydrate/macrocrystals 100 mg capsule (Macrobid) ondansetron 4 mg disintegrating 4 mg PO Q8H PRN Nausea #12 tabs 09/28/23 tablet nitrofurantoin 100 mg PO BID 7 days #14 caps 11/19/24 monohydrate/macrocrystals 100 mg capsule (Macrobid) phenazopyridine 100 mg tablet 100 mg PO Q8H #9 tabs 11/19/24 (Pyridium) albuterol sulfate 90 mcg/actuation 2 inh inhalation Q6H PRN cough 01/26/25 aerosol inhaler (Ventolin HFA) #8.5 grams gzrgifjmmocflur-bdbqeoxcoxjzpjr-RG 5 ml PO Q6H PRN cold symptoms 7 01/26/25 2 mg-30 mg-10 mg/5 mL oral syrup days #118 mL prednisone 50 mg tablet 50 mg PO DAILY 5 days #5 tabs 01/26/25 Allergies Allergy/AdvReac Type Severity Reaction Status Date / Time No Known Allergies Allergy Verified 09/28/23 18:42 [facility] Disclaimer: The information contained in this section may have been updated after the patient was seen, as this information can be updated by other users. Surgical History H/O tubal ligation History of cholecystectomy Family History Other No significant family history Social History Smoking Status: Current every day smoker tobacco type: cigarettes packs per day: 1 alcohol intake: never substance use type: other current occupational status: disabled Travel in the last 8 weeks?: None household members: significant other housing: house current occupational exposures/hazards: No caffeine: Yes Have you lived/traveled outside [place] in past 30 days?: No Contact w/someone who lives/traveled outside US past 30 days?: No Exposure to someone with infectious disease in past 14 days?: No Do you have a fever (greater than 100.4 F or 38 C)?: No Have you tested positive for COVID-19?: No Exposed to someone with COVID-19 in past 14 days?: No Do you have a sore throat?: No Do you have a cough?: No Do you have any weakness?: No Do you have any diarrhea?: No Are you experiencing any unusual bleeding?: No Do you have any muscle aches/pain?: No Do you have any abdominal pain?: No Are you experiencing loss of taste or smell?: No Other Medical History Have you received the Flu Vaccine for this season: No Have you received the Pneumonia Vaccine: No ROS Obtained: Yes All systems reviewed & no additional complaints except as documented Physical Exam General General appearance: other (Actively coughing with productive sputum) Respiratory Respiratory exam: Present normal lung sounds bilaterally; Absent respiratory distress or wheezes Cardiovascular Cardiovascular exam: Present regular rate and normal rhythm Neurological Exam Neurological exam: Present alert and oriented X3 Medical Decision Making Medical Records Screening: Per USPSTF and CDC recommendations, given the prevalence of disease in our region, it is our hospital?s policy to screen for HIV and viral Hepatitis for all patients aged 18 and over and those with ongoing risk factors. David Inquiry Pt receiving controlled substance: No Vital Signs: 01/26/25 08:23 01/26/25 08:23 01/26/25 08:26 Temperature 97.9 F 97.9 F Temperature Source Oral Oral Pulse Rate 54 L 50 L Pulse Rate [Right] 54 L Respiratory Rate 16 16 Blood Pressure 133/86 133/86 Blood Pressure [Right Arm] 133/86 Blood Pressure Mean Blood Pressure Mean [Right Arm] 101 Blood Pressure Source Automatic Cuff Blood Pressure Source [Right Arm] Automatic Cuff Blood Pressure Position Supine Blood Pressure Position [Right Arm] Supine 02 Sat by Pulse Oximetry 100 100 99 Oxygen Delivery Method Room Air Room Air Room Air 01/26/25 08:30 01/26/25 09:00 Temperature Temperature Source Pulse Rate 45 L 48 L Pulse Rate [Right] Respiratory Rate 16 Blood Pressure 137/83 116/77 Blood Pressure [Right Arm] Blood Pressure Mean 92 Blood Pressure Mean [Right Arm] Blood Pressure Source Blood Pressure Source [Right Arm] Blood Pressure Position Blood Pressure Position [Right Arm] 02 Sat by Pulse Oximetry 100 97 Oxygen Delivery Method Room Air Orders (Tests/Meds): ED MEDICATIONS Generic Name Dose Route Start Last Admin Trade Name Latricia PRN Reason Stop Dose Admin Benzonatate 100 mg 01/26/25 09:00 01/26/25 09:04 Benzonatate 100mg Capsule PO 02/25/25 08:59 100 mg ONCE MIL Administration Discontinued Medications Generic Name Dose Route Start Last Admin Trade Name Latricia PRN Reason Stop Dose Admin Acetaminophen 1,000 mg 01/26/25 08:54 01/26/25 09:04 Acetaminophen 500mg Tab PO 01/26/25 08:55 1,000 mg ONCE ONE Administration Albuterol/Ipratropium 3 ml 01/26/25 08:54 01/26/25 09:05 Ipratropium/Albuterol 3 Ml Neb IH 01/26/25 08:55 3 ml ONCE ONE Administration ORDERS Category Date Time Status Chest XR 2 view (NOT portable) [XR chest 2V] Stat Exams 01/26/25 08:53 Taken Mini Respiratory Panel Stat Lab 01/26/25 08:36 Received Medical Decision Narrative: Patient with above history and physical oxygen saturations are 98% on room air with normal lung auscultation. Unlikely to be pneumonia but will get a two-view chest x-ray particular given her smoking history. Had extensive discussion with her regarding smoking cessation. Supportive care has been discussed this is most likely a viral syndrome. Viral panel has been sent. Will reassess after chest x-ray has been performed. Of note patient did states she has been wheezing some lately so DuoNeb has been ordered in addition to other medications to see if she has any evidence of reactive airways. Reassessment 927 patient felt much better after DuoNeb she likely has some component of reactive airways possibly early obstructive lung disease I have strongly advised that she stop smoking we will add steroids and an albuterol inhaler onto her prescriptions at home in addition to cough medicine. Chest x-ray was performed which I personally interpreted which shows no evidence of pneumonia. Supportive care discussed patient discharged in stable condition peer Critical Care Critical Care Time Critical Care Time: No
[2025-01-26] MEDS: IPRATROPIUM/ALBUTEROL 3 ML NEB IH (09:05)
[2025-01-26 09:49] VITALS: BP 121/87; PULSE 51; RESP 16; TEMP 37.1; O2SAT 96
== END 2025-01-26 09:50 | disposition home or self-care (01) ==
PROVIDERS: Emergency Provider Student in an Organized Health Care Education/Training Program; PCP Nurse Practitioner Family
DX: J06.9 Acute upper respiratory infection, unspecified (principal); B34.8 Other viral infections of unspecified site; H92.03 Otalgia, bilateral; R05.1 Acute cough; F17.210 Nicotine dependence, cigarettes, uncomplicated; Z71.6 Tobacco abuse counseling
CPT/HCPCS: 71046; 87631; 99283

== ENCOUNTER 2025-03-28 18:36 | Emergency (ER) | payer MEDICAID, SELFPAY ==
[2025-03-28 19:25] VITALS: BP 0/0; PULSE 0; RESP 0; TEMP -17.7; TEMP 0; O2SAT 0
--- OUTSIDE RECORDS SUMMARY | 2025-04-03 08:40 | XMS_ITS | Patient Health Record ---
Author Organization [facility] Address [address] [facility] [address] [place] [address] Phone [phone] Care Team Providers Care Field Kiln Burner Name Role Phone Marli Nunes APRN Unavailable RosalindFrancesco montes APRNn Unavailable Sebastian [employer], MRS. Drummond Unavailable Allergies No Known Allergies Results Component Value Reference Range Flag Notes Hepatitis (HCV) Quant NAAT w /Reflex to Genotyping ([facility]) Order date: 04/13/2024 Reviewed date:05/26/2024 02:26:40 PM Interpretation: Performing Lab: Notes/Report: HCV Qnt Interp N/R N HCV Qnt (IU/mL) N/R N Result an alyzed by [employer] HCV Qnt (log IU/mL) N/R N TSH Order date: 04/13/2024 Reviewed date:04/20/2024 04:20:08 PM Interpretation: Performing Lab: Notes/Report: TSH 1.20 0.35-4.94 uIU/ml N Result a nalyzed by [employer] T. vaginalis Order date: 04/13/2024 Reviewed date:04/15/2024 01:41:11 PM Interpretation: Performing Lab: Notes/Report: Trichomonas vaginalis Not Detected Not Detected Syphilis with Reflex to RPR Titer and TP-PA Confirmation Order date: 04/13/2024 Reviewed date:04/20/2024 04:20:08 PM Interpretation: Performing Lab: Notes/Report: Syphilis (Titer and TP-PA Reflex) Nonreactive Nonreactive HIV Ag/Ab with Reflex to HIV Types 1 and 2 Antibody Differentiation Order date: 04/13/2024 Reviewed date:04/20/2024 04:20:08 PM Interpretation: Performing Lab: Notes/Report: HIV Ag/Ab (HIV 1 and 2 Antibody Reflex) NON REACTIVE NON REACTIVE N Result analyzed by [employer] HCV AB with Reflex to Quanti ty and Reflex to Genotyping Order date: 04/13/2024 Reviewed date:04/20/2024 08:36:54 AM Interpretation: Performing Lab: Notes/Report: Result analyzed by [employer] HCV Qnt Interp N/R N HCV Qnt (IU/mL) N/R N HCV Qnt (log IU/mL) N/R N Hepatitis C Antibody (Genotype Reflex) NON REACTIVE NON REACTIVE N Hepatitis C Virus Genotype by Sequencing N/R N Hepatitis B Total Core Antib chapin Order date: 04/13/2024 Reviewed date:04/21/2024 11:02:11 AM Interpretation: Performing Lab: Notes/Report: Hepatitis B Total Core Antibody 0.1400 < 0.8000 Hepatitis B Surface Antigen Order date: 04/13/2024 Reviewed date:04/21/2024 11:02:11 AM Interpretation: Performing Lab: Notes/Report: Hepatitis B Surface Antigen 0.4100 Nonreactive Hepatitis B Surface Antibody Order date: 04/13/2024 Reviewed date:04/23/2024 12:34:03 PM Interpretation: Performing Lab: Notes/Report: Hepatitis B Surface Antibody 1000.0000 - A Chlamydia and Gonorrhea Pane l Order date: 04/13/2024 Reviewed date:04/15/2024 01:41:18 PM Interpretation: Performing Lab: Notes/Report: Chlamydia trachomatis Not Detected Not Detected Neisseria gonorrhoeae Not Detected Not Detected CBC with Diff Order date: 04/13/2024 Reviewed date:04/21/2024 11:04:35 AM Interpretation: Performing Lab: [...] 2.234 1.6300 - 6.9600 x10 2.234 0 Comprehensive Metabolic Pane l (CMP) Order date: 04/13/2024 Reviewed date:04/20/2024 04:11:31 PM Interpretation: Performing Lab: [...] 6.4000 - 8.3000 g/dL 7.0000 Sodium (Na) 317 361.0349 - 145.0 000 mmol/L 142.0000 Hepatitis C Virus Genotype b y Sequencing Order date: 04/13/2024 Reviewed date:04/20/2024 08:36:49 AM Interpretation: Performing Lab: Notes/Report: Hepatitis C Virus Genotype by Sequencing N/R N Reason For Referral No Information Medications Medication SIG (Take, Route, Frequency, Duration) Notes Start Date End Date Diagnosis (ICD Code) Status Mirtazapine 7.5 MG Tablet 1 tablet at bedtime Orally at bedtime; Duration: 30 days deliver to [place] 5 Chronic insomnia (ICD_10 - F51.04) Active Cetirizine HCl 10 MG Capsule 1 capsule Orally Once a day; Duration: 30 days Seasonal allergies (ICD_10 - J30.2) Active Famotidine 40 MG Tablet 1 tablet Orally Once a day; Duration: 30 days Chronic or unspecified gastric ulcer with hemorrhage (ICD_10 - K25.4) Active hydrOXYzine HCl 25 MG Tablet 1 tablet as needed Orally three times a day; Duration: 30 days As needed 5 Generalized anxiety disorder (ICD_10 - F41.1) Active Flonase Allergy Relief 50 MCG/ACT Suspension 1 spray in each nostril Nasally Twice a day Not-Taking Social History Tobacco Use: Social History Observation Description Date Details (start date - stop date) Current Smoker NA - NA Sex Observation Social History Observation Description Sex Observation Female Social History Tobacco Use: Social Info [...] Problems Problem Type SNOMED Code ICD Code Dates Problem Status W/U Status Risk Notes Problem Generalized anxiety disorder (22499690) Generalized anxiety disorder (F41.1) Added On:2024 Active confirmed Problem Chronic gastric ulcer with haemorrhage (26912060) Chronic or unspecified gastric ulcer with hemorrhage (K25.4) Added On:2024 Active confirmed Problem Chronic insomnia (530526041) Chronic insomnia (F51.04) Added On:2024 Active confirmed Problem Seasonal allergy (451742472) Seasonal allergies (J30.2) Added On:2024 Active confirmed Vital Signs Vital Sign Value Notes Appt Date Heart Rate 55 /min 04/27/2024 Temperature 98.9 degrees Fahrenheit 04/06 Respiratory Rate 16 /min 04/27/2024 Blood pressure diastolic 77 mm Hg Oximetry 98 % 04/27/2024 Height-cm 157.48 cm 04/27/2024 Weight-kg 81.56 kg 04/27/2024 Height 62 in 04/27/2024 Blood pressure systolic 133 mm Hg 04/06 Weight 179.8 lbs 04/27/2024 BMI 32.88 kg/m2 04/27/2024 Encounters Date Time Type Facility Location Provider Diagnosis 10:30 AM Office Visit, New Pt., Level 4 (11653) [facility] [address] [address] Hoda Cortes Stimulant use disorder F15.90 ; Chronic insomnia F51.04 ; Chronic or unspecified gastric ulcer with hemorrhage K25.4 ; Generalized anxiety disorder F41.1 ; Seasonal allergies J30.2 and Other lesions of oral mucosa K13.79 5 11:00 AM Office Visit, Est Pt., Level 3 (45971) [facility] [address] [address] Marli Nunes Chronic insomnia F51.04 5 12:39 PM Telephone Encounter [facility] [address] [address] Zaida Rosalind 5 01:03 PM Telephone Encounter [facility] [address] [address] Zaida Rosalind 5 01:04 PM Telephone Encounter [facility] [address] [address] Zaida Rosalind Other lesions of oral mucosa K13.79 5 02:23 PM Telephone Encounter [facility] [address] [address] Marli Manju Other lesions of oral mucosa K13.79 Assessments Encounter Date Diagnosis (ICD Code) Assessment Notes Treatment Notes Section Notes 04/13/2024 Stimulant use disorder [...] Start Date Coverage End Date [employer] [address] [address] [place], [place] [phone] [id number] Wanda Steele Self - patient is the insured 7 Medical (General) History Medical History History ICD Code Anxiety Seasonal Allergies Stomach Ulcers Panic Attacks Surgical History Surgery Date(Month/Year) Gallbladder removed 2018 tubal 2017 Hospitalization History Reason Date(Month/Year) tubal 2017 Gallbladder removed 2018
== END 2025-03-28 19:25 | disposition home or self-care (01) ==
LOC: ER 04-03 08:38
PROVIDERS: Emergency Provider Student in an Organized Health Care Education/Training Program; PCP Nurse Practitioner Family
DX: Z53.21 Procedure and treatment not carried out due to patient leaving prior to being seen by health care provider (principal)
CPT/HCPCS: 99211